=== PATIENT | female | born 1985 | race Caucasian/White ===

== ENCOUNTER → 2020-01-09 14:21 | Outpatient (CLI) | payer OTHER, SELFPAY ==
[2020-01-10 16:08] LABS: COVID19 Sendout Not Detected (Not Detected)
== END ==
PROVIDERS: Visit Provider Nurse Practitioner
DX: Z11.59 Encounter for screening for other viral diseases (principal); J02.9 Acute pharyngitis, unspecified; R53.83 Other fatigue
CPT/HCPCS: 87635

== ENCOUNTER 2020-12-05 09:45 | Outpatient (RCR) | payer OTHER, SELFPAY ==
--- NOTE | 2020-11-06 11:55 | PT.OIE ---
Current Diagnoses Rectocele (10/30/20) Pelvic muscle wasting (10/30/20) Superficial (introital) dyspareunia (10/30/20) Past Medical History Abnormal Pap smear of cervix (~2009) Acne (~2001) Anxiety (~2011) Generalized anxiety disorder History of chickenpox (~1988) Panic disorder Rectocele Hu syndrome (~2004) Right wrist fracture (~1995) Vegan diet Past Surgical History (Last Reviewed 09/27/20 @ 09:29 by Pam Nugent DO) [place] teeth removed (~2003) Visit Care Team Role Provider Type Pam Nugent DO Attending Provider Physician Primary Care Provider Referring Provider Specialty: [facility] Address: [address] [place] [address], [facility] Email: [email or web address] Physical Therapy Initial Evaluation PT-OP-A Visit Information Start: 10/30/20 13:47 Freq: Status: Active Protocol: Document 10/30/20 13:45 [facility] (Rec: 10/30/20 13:59 [facility] [id number]) Out-Patient Physical Therapy Visit Information Visit Information Visit Type Initial Evaluation Visit Note 35 year old female referred to PT for pelvic floor strengthening for Rectocele Visit Start Time 13:45 Visit Stop Time 14:30 Total Visit Minutes 45 Visit Number 1 Evaluation Information Evaluation Date 10/30/20 PT-OP-B Current Condition Start: 10/30/20 13:47 Freq: Status: Active Protocol: Document 10/30/20 13:45 [facility] (Rec: 11/05/20 10:15 [facility] [email or web address]) Current Condition History of Current Condition Onset Date Rectocele s/p delivery of 9# baby June 2019 History of Current Condition Sydnee is a 35 year old female para 2 with c/o rectocele that developed following the of her baby July 21 2019 . Sydnee reports at 6 weeks post she could see tissue falling out. She also notes she was suffering from constipation post . She did do PT for 4 weeks post and this helped her symptoms. Then the pandemic hit and she moved from [facility] so she had to stop her PT. She reports her symptoms have improved however , she still can palpate tissue from the rectocele and has occasional pain with intercourse. She has a history of perineum tearing in 2017 from her first delivery but she notes this was only minor tearing. She does not complain of pelvic heaviness of pressure. Sydnee reports she works out approx 4 times per week with pilates, running , or stationary bike and has good bladder control with these activities. PT-OP-C Subjective Start: 10/30/20 13:47 Freq: Status: Active Protocol: Document 10/30/20 13:45 [facility] (Rec: 11/05/20 10:30 [facility] [email or web address]) Patient Questionnaires Pelvic Pain and Urgency/Frequency Patient Symptom Scale Pelvic Pain Score 7 PT-OP-F Manual Assessment Start: 10/30/20 13:47 Freq: Status: Active Protocol: Document 10/30/20 13:45 [facility] (Rec: 11/05/20 10:30 [facility] [email or web address]) Manual Assessments Soft Tissue Assessment Soft Tissue Mobility Assessment thinning and redness of the perineal tissue PT-OP-I Pelvic Floor Start: 10/30/20 13:47 Freq: Status: Active Protocol: Document 10/30/20 13:45 [facility] (Rec: 11/05/20 10:30 [facility] [email or web address]) Pelvic Floor Assessment Urine Pelvic Floor Surgery No Pelvic Clock Pelvic Clock 3-6 Tenderness Prolapse Rectocele Grade 2 Perineal Descent Resting Present SEMG (uV) Baseline 1.9 10 Second Contraction 7.8 Recruitment Pattern Good Holding Fair Stability of Hold Fair Contraction Ability Voluntary Contraction Weak Voluntary Relaxation Moderate Manual Muscle Testing Left 2 Manual Muscle Testing Right 3 Manual Muscle Testing Anterior 3 Manual Muscle Testing Posterior 3 Muscle Endurance (Seconds) 6 Comments Pelvic Floor Comments Sydnee is able to contract all aspects of her levator ani. She is weaker on the left side between 3-6 on the pelvic clock and she has tenderness in this area with palpation. With EMG biofeedback the working tone of the pelvic floor muscles was an average of 7.8 uv with a maximum of 24 uv and a minimum resting tone of 1.9 uv PT-OP-Q Treatments Start: 10/30/20 13:47 Freq: Status: Active Protocol: Document 10/30/20 13:45 [facility] (Rec: 11/05/20 10:32 [facility] [email or web address]) Therapeutic Exercises Supine Exercises pelvic floor long holds Supine Exercise Name pelvic floor long holds Side bilateral Reps/Minutes 10 reps average of 7,8 us and maximum of 24.0 uv minimum of 1.9 uv Comments EMG biofeedback was used for pelvic floor facilitation PT-OP-T Assessment and Plan Start: 10/30/20 13:47 Freq: Status: Active Protocol: Document 10/30/20 13:45 [facility] (Rec: 11/05/20 10:37 [facility] [email or web address]) Physical Therapy Assessment Goals dysparunia at times Scout Leaser Goal (LTG) Improve lift and strength of the perineum and decrease thinning of the perineal tissue to assist in decreasing pain with intercourse LTG Duration 8 weeks Strength of the pelvic floor Impairment Decreased strength of the pelvic floor with rectocele Shelter Goal (LTG) Sydnee is able to increase her strength of the levator ani to 4/5 or better on MMT, she no longer complains of tenderness on the left side (4-6 on the pelvic clock)with MMT LTG Duration 8 weeks endurance of the pelvic floor muscles Impairment Decreased endurance of the pelvic floor muscles Short Term Goal (STG) Sydnee is able to sustain a contraction of the levator ani musculature in supine x 10 seconds STG Duration 4 weeks Shelter Goal (LTG) Sydnee is able to sustain a contraction of the levtaor ani musculature in standing for 10 seconds for improved support of the pelvic organs LTG Duration 8 weeks Assessment Summary Assessment Sydnee is a 35 year old female who presents to Physical therapy today 15 months with her second baby. She had a vaginal delivery July [id number]. She reports 6 weeks post she began observing tissue and was experiencing constipation and diarrhea. She began PT for her pelvic floor and this was helping but then the pandemic hit and she moved with her family from [place] to [place] where she resides now. PT. She reports her symptoms have improved however, she still can palpate tissue from the rectocele and has occasional pain with intercourse. She has a history of perineum tearing in 2017 from her first delivery but she notes this was only minor tearing. She does not complain of pelvic heaviness of pressure. Sydnee reports she works out approx 4 times per week and she reports having good bladder control with these activities. With examination today Sydnee is able to contract all regions of her pelvic floor. She is weaker on the left ont he pelvic clock form 3-6 and and tenderness to palpation in this region. A grade 1-2 rectocele is palpated in supine. EMG biofeedback was initiated today and the working tone of the pelvic floor muscle was an average of 7.7 uv with a maximum of 24 uv and a minimum of 1.9 uv. Sydnee is a good candidate for pelvic floor PT and treatment will emphasize improving endurance and strength of the pelvic floor, improving lift of the perineum and improving tissue integrity of the perineum. Physical Therapy Plan Frequency and Duration Frequency of Treatment 1x/Week Duration of Treatment 8 Plan of Care Start Date 10/30/20 Plan of Care End Date 12/25/20 Therapeutic Interventions Therapeutic Interventions Home Exercise Program,Manual Therapy,Neuromuscular Re- education,Patient/Caregiver Education,Self-Care/Home Management,Therapeutic Exercises Modalities Biofeedback Next Visit Focus/Plan Next Note Type Treatment Note Next Visit Plan Work with EMG biofeedback on endurance training of the pelvic floor, assess quick contractions next visit, eccentric control and coordination
--- NOTE | 2020-11-06 11:56 | PT.OPPOC ---
Physical, Occupational & Speech Therapy At [facility] Current Diagnoses Rectocele (10/30/20) Pelvic muscle wasting (10/30/20) Superficial (introital) dyspareunia (10/30/20) Visit Care Team Role Provider Type Pam Nugent DO Attending Provider Physician Primary Care Provider Referring Provider Specialty: Family Practice Address: [address] [place] [address], [facility], [place], [place], [facility] Email: [email or web address] Plan Of Care PT-OP-T Assessment and Plan Start: 10/30/20 13:47 Freq: Status: Active Protocol: Document 10/30/20 13:45 [facility] (Rec: 11/05/20 10:37 [facility] [email or web address]) Physical Therapy Assessment Goals dysparunia at times Scroll Saw Operator Goal (LTG) Improve lift and strength of the perineum and decrease thinning of the perineal tissue to assist in decreasing pain with intercourse LTG Duration 8 weeks Strength of the pelvic floor Impairment Decreased strength of the pelvic floor with rectocele Fpc Goal (LTG) Sydnee is able to increase her strength of the levator ani to 4/5 or better on MMT, she no longer complains of tenderness on the left side (4-6 on the pelvic clock)with MMT LTG Duration 8 weeks endurance of the pelvic floor muscles Impairment Decreased endurance of the pelvic floor muscles Short Term Goal (STG) Sydnee is able to sustain a contraction of the levator ani musculature in supine x 10 seconds STG Duration 4 weeks Fpc Goal (LTG) Sydnee is able to sustain a contraction of the levtaor ani musculature in standing for 10 seconds for improved support of the pelvic organs LTG Duration 8 weeks Assessment Summary Assessment Sydnee is a 35 year old female who presents to Physical therapy today 15 months with her second baby. She had a vaginal delivery July [id number]. She reports 6 weeks post she began observing tissue and was experiencing constipation and diarrhea. She began PT for her pelvic floor and this was helping but then the pandemic hit and she moved with her family from [place] to [place] where she resides now. She reports her symptoms have improved, however she still can palpate tissue from the rectocele and has occasional pain with intercourse. She has a history of perineum tearing in 2017 from her first delivery but she notes this was only minor tearing. She does not complain of pelvic heaviness of pressure. Sydnee reports she works out approx 4 times per week and she reports having good bladder control with these activities. With examination today Sydnee is able to contract all regions of her pelvic floor. She is weaker on the left on the pelvic clock form 3-6 and and tenderness to palpation in this region. A grade 1-2 rectocele is palpated in supine. EMG biofeedback was initiated today and the working tone of the pelvic floor muscle was an average of 7.7 uv with a maximum of 24 uv and a minimum of 1.9 uv. Sydnee is a good candidate for pelvic floor PT and treatment will emphasize improving endurance and strength of the pelvic floor, improving lift of the perineum and improving tissue integrity of the perineum. Physical Therapy Plan Frequency and Duration Frequency of Treatment 1x/Week Duration of Treatment 8 Plan of Care Start Date 10/30/20 Plan of Care End Date 12/25/20 Therapeutic Interventions Therapeutic Interventions Home Exercise Program,Manual Therapy,Neuromuscular Re- education,Patient/Caregiver Education,Self-Care/Home Management,Therapeutic Exercises Modalities Biofeedback Next Visit Focus/Plan Next Note Type Treatment Note Next Visit Plan Work with EMG biofeedback on endurance training of the pelvic floor, assess quick contractions next visit, eccentric control and coordination Plan of Care Dates Plan of Care Start Date 10/30/20 Plan of Care End Date 12/25/20 Electronically Signed by: Debi Hope, PT 11/06/20 4510 Please Sign and Return: I have reviewed this Plan of Care and certify that the skilled therapy services above are required to meet the patient?s needs. Physician Signature Date Printed Name and Credentials Clinical Instructor Signature Printed Name and Credentials
--- NOTE | 2020-11-07 14:12 | PT.OTN ---
Current Diagnoses Rectocele (11/07/20) Pelvic muscle wasting (11/07/20) Superficial (introital) dyspareunia (11/07/20) Physical Therapy Treatment Note PT-OP-A Visit Information Start: 10/30/20 13:47 Freq: Status: Active Protocol: Document 11/07/20 14:06 [facility] (Rec: 11/07/20 14:06 [facility] [email or web address]) Out-Patient Physical Therapy Visit Information Visit Information Visit Type Treatment Note Visit Start Time 09:45 Visit Stop Time 10:30 Total Visit Minutes 45 Visit Number 2 Evaluation Information Evaluation Date 10/30/20 PT-OP-B Current Condition Start: 10/30/20 13:47 Freq: Status: Active Protocol: Document 10/30/20 13:45 [facility] (Rec: 11/05/20 10:15 [facility] [email or web address]) Current Condition History of Current Condition Onset Date Rectocele s/p delivery of 9# baby June 2019 History of Current Condition Sydnee is a 35 year old female para 2 with c/o rectocele that developed following the of her baby July 21 2019 . Sydnee reports at 6 weeks post she could see tissue falling out. She also notes she was suffering from constipation post . She did do PT for 4 weeks post and this helped her symptoms. Then the pandemic hit and she moved from [place] to [place] so she had to stop her PT. She reports her symptoms have improved however , she still can palpate tissue from the rectocele and has occasional pain with intercourse. She has a history of perineum tearing in 2017 from her first delivery but she notes this was only minor tearing. She does not complain of pelvic heavyness of pressure. Sydnee reports she works out approx 4 times per week with pilates, running , or stationary bike and has good bladder control with these activities. PT-OP-C Subjective Start: 10/30/20 13:47 Freq: Status: Active Protocol: Document 11/07/20 09:50 [facility] (Rec: 11/07/20 09:52 [facility] [id number]) OP-PT Subjective Patient Comments Patient Comments in the evening it felt harder to hold than in the am, tried legs up the wall exercise. PT-OP-F Manual Assessment Start: 10/30/20 13:47 Freq: Status: Active Protocol: Document 10/30/20 13:45 [facility] (Rec: 11/05/20 10:30 [facility] [email or web address]) Manual Assessments Soft Tissue Assessment Soft Tissue Mobility Assessment thinning and redness of the perineal tissue PT-OP-I Pelvic Floor Start: 10/30/20 13:47 Freq: Status: Active Protocol: Document 10/30/20 13:45 [facility] (Rec: 11/05/20 10:30 [facility] [email or web address]) Pelvic Floor Assessment Urine Pelvic Floor Surgery No Pelvic Clock Pelvic Clock 3-6 Tenderness Prolapse Rectocele Grade 2 Perineal Descent Resting Present SEMG (uV) Baseline 1.9 10 Second Contraction 7.8 Recruitment Pattern Good Holding Fair Stability of Hold Fair Contraction Ability Voluntary Contraction Weak Voluntary Relaxation Moderate Manual Muscle Testing Left 2 Manual Muscle Testing Right 3 Manual Muscle Testing Anterior 3 Manual Muscle Testing Posterior 3 Muscle Endurance (Seconds) 6 Comments Pelvic Floor Comments Sydnee is able to contract all aspects of her levator ani. She is weaker on the left side between 3-6 on the pelvic clock and she has tenderness in this area with palpation. With EMG biofeedback the working tone of the pelvic floor muscles was an average of 7.8 uv with a maximum of 24 uv and a minimum resting tone of 1.9 uv PT-OP-Q Treatments Start: 10/30/20 13:47 Freq: Status: Active Protocol: Document 11/07/20 09:45 [facility] (Rec: 11/07/20 10:37 [facility] [id number]) Therapeutic Exercises Supine Exercises templates for eccentric control and coordination Comments templates for eccentric control and coordination. quick contractions Reps/Minutes x 10m reps pelvic floor long holds Supine Exercise Name pelvic floor long holds Side bilateral Reps/Minutes 10.0 uv average Comments EMG biofeedback was used for pelvic floor facilitation Neuro Re-Education Treatment Other Activities NMES Details NMES Reps/Duration 10 min Comments on for 10 seconds and off x 10 seconds PT-OP-T Assessment and Plan Start: 10/30/20 13:47 Freq: Status: Active Protocol: Document 11/07/20 10:00 [facility] (Rec: 11/07/20 10:28 [facility] [id number]) Physical Therapy Assessment Assessment Summary Assessment Average to9day 10.1 and max of 16.1 uv added in quick contractions for HEP and elevator exercise for concentric and eccentric contractions also initiated NMES today for improved awareness of the levator ani. Pt was given hand out on julvia cream for the perineum Physical Therapy Plan Frequency and Duration Frequency of Treatment 1x/Week Duration of Treatment 8 Plan of Care Start Date 10/30/20 Plan of Care End Date 12/25/20 Therapeutic Interventions Therapeutic Interventions Home Exercise Program,Manual Therapy,Neuromuscular Re- education,Patient/Caregiver Education,Self-Care/Home Management,Therapeutic Exercises Modalities Biofeedback Next Visit Focus/Plan Next Note Type Treatment Note Next Visit Plan begin scar tissue mobilizations for the perineum next visit
--- NOTE | 2020-11-21 10:50 | PT.OTN ---
Current Diagnoses Rectocele (11/21/20) Pelvic muscle wasting (11/21/20) Superficial (introital) dyspareunia (11/21/20) Physical Therapy Treatment Note PT-OP-A Visit Information Start: 10/30/20 13:47 Freq: Status: Active Protocol: Document 11/21/20 10:39 [facility] (Rec: 11/21/20 10:50 [facility] [email or web address]) Out-Patient Physical Therapy Visit Information Visit Information Visit Type Treatment Note Visit Start Time 09:45 Visit Stop Time 10:30 Total Visit Minutes 45 Visit Number 3 PT-OP-B Current Condition Start: 10/30/20 13:47 Freq: Status: Active Protocol: Document 10/30/20 13:45 [facility] (Rec: 11/05/20 10:15 [facility] [email or web address]) Current Condition History of Current Condition Onset Date Rectocele s/p delivery of 9# baby June 2019 History of Current Condition Sydnee is a 35 year old female para 2 with c/o rectocele that developed following the of her baby July 21 2019 . Sydnee reports at 6 weeks post she could see tissue falling out. She also notes she was suffering from constipation post . She did do PT for 4 weeks post and this helped her symptoms. Then the pandemic hit and she moved from [place] to [place] so she had to stop her PT. She reports her symptoms have improved however , she still can palpate tissue from the rectocele and has occasional pain with intercourse. She has a history of perineum tearing in 2017 from her first delivery but she notes this was only minor tearing. She does not complain of pelvic heavyness of pressure. Sydnee reports she works out approx 4 times per week with pilates, running , or stationary bike and has good bladder control with these activities. PT-OP-C Subjective Start: 10/30/20 13:47 Freq: Status: Active Protocol: Document 11/21/20 10:39 [facility] (Rec: 11/21/20 10:50 [facility] [email or web address]) OP-PT Subjective Patient Comments Patient Comments Sydnee reports she is doing well with her exercises, she does report muscle soreness around the iliac crest and is not sure if it is related to her pelvic floor exercises or not. PT-OP-F Manual Assessment Start: 10/30/20 13:47 Freq: Status: Active Protocol: Document 10/30/20 13:45 [facility] (Rec: 11/05/20 10:30 [facility] [email or web address]) Manual Assessments Soft Tissue Assessment Soft Tissue Mobility Assessment thinning and redness of the perineal tissue PT-OP-I Pelvic Floor Start: 10/30/20 13:47 Freq: Status: Active Protocol: Document 10/30/20 13:45 [facility] (Rec: 11/05/20 10:30 [facility] [email or web address]) Pelvic Floor Assessment Urine Pelvic Floor Surgery No Pelvic Clock Pelvic Clock 3-6 Tenderness Prolapse Rectocele Grade 2 Perineal Descent Resting Present SEMG (uV) Baseline 1.9 10 Second Contraction 7.8 Recruitment Pattern Good Holding Fair Stability of Hold Fair Contraction Ability Voluntary Contraction Weak Voluntary Relaxation Moderate Manual Muscle Testing Left 2 Manual Muscle Testing Right 3 Manual Muscle Testing Anterior 3 Manual Muscle Testing Posterior 3 Muscle Endurance (Seconds) 6 Comments Pelvic Floor Comments Sydnee is able to contract all aspects of her levator ani. She is weaker on the left side between 3-6 on the pelvic clock and she has tenderness in this area with palpation. With EMG biofeedback the working tone of the pelvic floor muscles was an average of 7.8 uv with a maximum of 24 uv and a minimum resting tone of 1.9 uv PT-OP-Q Treatments Start: 10/30/20 13:47 Freq: Status: Active Protocol: Document 11/21/20 10:39 [facility] (Rec: 11/21/20 10:50 [facility] [email or web address]) Therapeutic Exercises Other Exercises piriformis stretches Comments pt given a few to choose from for HEP quadratus lumborum stretches Comments pt given a few to choose from for HEP ITB stretches Comments pt given a few to choose from for HEP Manual Therapy Treatment Soft Tissue Mobilization bulbocavernosus release Comments tender both sides Transverse perineum MFR Comments tighter on the right side perineal body MFR Comments tighter on the right side Neuro Re-Education Treatment Other Activities NMES Details NMES Reps/Duration 10 min Comments on for 10 seconds and off x 10 seconds PT-OP-T Assessment and Plan Start: 10/30/20 13:47 Freq: Status: Active Protocol: Document 11/21/20 10:39 [facility] (Rec: 11/21/20 10:50 [facility] [email or web address]) Physical Therapy Assessment Assessment Summary Assessment worked on stretches for the QL and ITB today as Sydnee was having right sided pain near her iliac crest. Worked on perineum mobilization, transverse perineum release and release of the bulbocavernosus. Right side tighter. Pt has improved contraction of the pelvic floor now but just a little harder to relax on the right side. Physical Therapy Plan Frequency and Duration Frequency of Treatment 1x/Week Duration of Treatment 8 Plan of Care Start Date 10/30/20 Plan of Care End Date 12/25/20 Therapeutic Interventions Therapeutic Interventions Home Exercise Program,Manual Therapy,Neuromuscular Re- education,Patient/Caregiver Education,Self-Care/Home Management,Therapeutic Exercises Modalities Biofeedback Next Visit Focus/Plan Next Note Type Treatment Note Next Visit Plan assess pain at the SI joint, EMG biofeedback for pelvic floor endurance
--- NOTE | 2020-11-28 14:03 | PT.OTN ---
Current Diagnoses Rectocele (11/28/20) Pelvic muscle wasting (11/28/20) Superficial (introital) dyspareunia (11/28/20) Physical Therapy Treatment Note PT-OP-A Visit Information Start: 10/30/20 13:47 Freq: Status: Active Protocol: Document 11/28/20 09:46 [facility] (Rec: 11/28/20 09:50 [facility] [id number]) Out-Patient Physical Therapy Visit Information Visit Information Visit Type Treatment Note Visit Start Time 09:45 Visit Stop Time 10:30 Total Visit Minutes 45 Visit Number 4 PT-OP-B Current Condition Start: 10/30/20 13:47 Freq: Status: Active Protocol: Document 10/30/20 13:45 [facility] (Rec: 11/05/20 10:15 [facility] [id number]) Current Condition History of Current Condition Onset Date Rectocele s/p delivery of 9# baby June 2019 History of Current Condition Sydnee is a 35 year old female para 2 with c/o rectocele that developed following the of her baby July 21 2019 . Sydnee reports at 6 weeks post she could see tissue falling out. She also notes she was suffering from constipation post . She did do PT for 4 weeks post and this helped her symptoms. Then the pandemic hit and she moved from [place] to [place] so she had to stop her PT. She reports her symptoms have improved however , she still can palpate tissue from the rectocele and has occasional pain with intercourse. She has a history of perineum tearing in 2017 from her first delivery but she notes this was only minor tearing. She does not complain of pelvic heavyness of pressure. Sydnee reports she works out approx 4 times per week with pilates, running , or stationary bike and has good bladder control with these activities. PT-OP-C Subjective Start: 10/30/20 13:47 Freq: Status: Active Protocol: Document 11/28/20 09:46 [facility] (Rec: 11/28/20 09:50 [facility] [id number]) OP-PT Subjective Patient Comments Patient Comments the side stretches seem to help her pain at the right Si joint. She has the julva cream and has been using it this week. She is not feeling the pressure from the rectocele PT-OP-F Manual Assessment Start: 10/30/20 13:47 Freq: Status: Active Protocol: Document 10/30/20 13:45 [facility] (Rec: 11/05/20 10:30 [facility] [email or web address]) Manual Assessments Soft Tissue Assessment Soft Tissue Mobility Assessment thinning and redness of the perineal tissue PT-OP-I Pelvic Floor Start: 10/30/20 13:47 Freq: Status: Active Protocol: Document 10/30/20 13:45 [facility] (Rec: 11/05/20 10:30 [facility] [email or web address]) Pelvic Floor Assessment Urine Pelvic Floor Surgery No Pelvic Clock Pelvic Clock 3-6 Tenderness Prolapse Rectocele Grade 2 Perineal Descent Resting Present SEMG (uV) Baseline 1.9 10 Second Contraction 7.8 Recruitment Pattern Good Holding Fair Stability of Hold Fair Contraction Ability Voluntary Contraction Weak Voluntary Relaxation Moderate Manual Muscle Testing Left 2 Manual Muscle Testing Right 3 Manual Muscle Testing Anterior 3 Manual Muscle Testing Posterior 3 Muscle Endurance (Seconds) 6 Comments Pelvic Floor Comments Sydnee is able to contract all aspects of her levator ani. She is weaker on the left side between 3-6 on the pelvic clock and she has tenderness in this area with palpation. With EMG biofeedback the working tone of the pelvic floor muscles was an average of 7.8 uv with a maximum of 24 uv and a minimum resting tone of 1.9 uv PT-OP-Q Treatments Start: 10/30/20 13:47 Freq: Status: Active Protocol: Document 11/28/20 10:08 [facility] (Rec: 11/28/20 10:33 [facility] [id number]) Therapeutic Exercises Supine Exercises templates for eccentric control and coordination Comments templates for eccentric control and coordination. quick contractions Reps/Minutes x 10m reps pelvic floor long holds Reps/Minutes 9.0 uv average, 14.2uv Other Exercises clam shells Reps/Minutes 3x 10 reps Manual Therapy Treatment Soft Tissue Mobilization Transverse perineum MFR Comments improved today with mobility both sides of the transverse perineum. perineal body MFR Comments perineal body movement felt more symmetrical both sides Neuro Re-Education Treatment Other Activities NMES Reps/Duration 10 min Comments pelvic floor NMES PT-OP-T Assessment and Plan Start: 10/30/20 13:47 Freq: Status: Active Protocol: Document 11/28/20 09:45 [facility] (Rec: 11/28/20 14:03 [facility] [email or web address]) Physical Therapy Assessment Assessment Summary Assessment Sydnee has been using the julva cream for 1 week now and today I could tell a difference in her tissue, she does not have as much redness now. The tension in transverse perineal was much reduced as well. She has been working on sidebending stretches at home. Physical Therapy Plan Frequency and Duration Frequency of Treatment 1x/Week Duration of Treatment 8 Plan of Care Start Date 10/30/20 Plan of Care End Date 12/25/20 Therapeutic Interventions Therapeutic Interventions Home Exercise Program,Manual Therapy,Neuromuscular Re- education,Patient/Caregiver Education,Self-Care/Home Management,Therapeutic Exercises Modalities Biofeedback Next Visit Focus/Plan Next Note Type Treatment Note Next Visit Plan work on standing single leg stance with pelvis in alignment, standing pelvic floor contractions
--- NOTE | 2020-12-06 18:23 | PT.OTN ---
Current Diagnoses Rectocele (12/05/20) Pelvic muscle wasting (12/05/20) Superficial (introital) dyspareunia (12/05/20) Physical Therapy Treatment Note PT-OP-A Visit Information Start: 10/30/20 13:47 Freq: Status: Active Protocol: Document 12/05/20 09:45 [facility] (Rec: 12/05/20 09:42 [facility] [email or web address]) Out-Patient Physical Therapy Visit Information Visit Information Visit Type Treatment Note Visit Start Time 09:45 Visit Stop Time 10:30 Total Visit Minutes 45 Visit Number 5 Evaluation Information Evaluation Date 10/30/20 PT-OP-B Current Condition Start: 10/30/20 13:47 Freq: Status: Active Protocol: Document 10/30/20 13:45 [facility] (Rec: 11/05/20 10:15 [facility] [email or web address]) Current Condition History of Current Condition Onset Date Rectocele s/p delivery of 9# baby June 2019 History of Current Condition Sydnee is a 35 year old female para 2 with c/o rectocele that developed following the of her baby July 21 2019 . Sydnee reports at 6 weeks post she could see tissue falling out. She also notes she was suffering from constipation post . She did do PT for 4 weeks post and this helped her symptoms. Then the pandemic hit and she moved from [place] to [place] so she had to stop her PT. She reports her symptoms have improved however , she still can palpate tissue from the rectocele and has occasional pain with intercourse. She has a history of perineum tearing in 2017 from her first delivery but she notes this was only minor tearing. She does not complain of pelvic heavyness of pressure. Sydnee reports she works out approx 4 times per week with pilates, running , or stationary bike and has good bladder control with these activities. PT-OP-C Subjective Start: 10/30/20 13:47 Freq: Status: Active Protocol: Document 12/05/20 09:45 [facility] (Rec: 12/05/20 10:05 [facility] [id number]) OP-PT Subjective Patient Comments Patient Comments pt reports she is not feeling the pelvic pressure now, she feels like she can do the kegels stronger now and hold longer. Using julvia cream daily and feels like there is some improvement with tissue at the vaginal opening. Patient Reported Progress Improving PT-OP-F Manual Assessment Start: 10/30/20 13:47 Freq: Status: Active Protocol: Document 10/30/20 13:45 [facility] (Rec: 11/05/20 10:30 [facility] [email or web address]) Manual Assessments Soft Tissue Assessment Soft Tissue Mobility Assessment thinning and redness of the perineal tissue PT-OP-I Pelvic Floor Start: 10/30/20 13:47 Freq: Status: Active Protocol: Document 10/30/20 13:45 [facility] (Rec: 11/05/20 10:30 [facility] [email or web address]) Pelvic Floor Assessment Urine Pelvic Floor Surgery No Pelvic Clock Pelvic Clock 3-6 Tenderness Prolapse Rectocele Grade 2 Perineal Descent Resting Present SEMG (uV) Baseline 1.9 10 Second Contraction 7.8 Recruitment Pattern Good Holding Fair Stability of Hold Fair Contraction Ability Voluntary Contraction Weak Voluntary Relaxation Moderate Manual Muscle Testing Left 2 Manual Muscle Testing Right 3 Manual Muscle Testing Anterior 3 Manual Muscle Testing Posterior 3 Muscle Endurance (Seconds) 6 Comments Pelvic Floor Comments Sydnee is able to contract all aspects of her levator ani. She is weaker on the left side between 3-6 on the pelvic clock and she has tenderness in this area with palpation. With EMG biofeedback the working tone of the pelvic floor muscles was an average of 7.8 uv with a maximum of 24 uv and a minimum resting tone of 1.9 uv PT-OP-Q Treatments Start: 10/30/20 13:47 Freq: Status: Active Protocol: Document 12/05/20 09:45 [facility] (Rec: 12/05/20 11:12 [facility] [id number]) Therapeutic Exercises Supine Exercises templates for eccentric control and coordination Comments templates for eccentric control and coordination. quick contractions Reps/Minutes x10 pelvic floor long holds Reps/Minutes 8.9 14.4 Standing Exercises standing pelvic floor 5 second holds and 10 sec relax Reps/Minutes x 10 reps 5 sec hold and 10 sec relax Other Exercises single leg squats Comments forward, side, back quadratus lumborum stretches Comments over large ball ITB stretches Reps/Minutes with small myofascial release ball PT-OP-T Assessment and Plan Start: 10/30/20 13:47 Freq: Status: Active Protocol: Document 12/05/20 09:45 [facility] (Rec: 12/06/20 18:23 [facility] [email or web address]) Physical Therapy Assessment Goals dysparunia at times Flexo Press Operator Goal (LTG) Improve lift and strength of the perineum and decrease thinning of the perineal tissue to assist in decreasing pain with intercourse GOOD PROGRESS LTG Duration 8 weeks Strength of the pelvic floor Impairment Decreased strength of the pelvic floor with rectocele Flexo Press Operator Goal (LTG) Sydnee is able to increase her strength of the levator ani to 4/5 or better on MMT, she no longer complains of tenderness on the left side (4-6 on the pelvic clock)with MMT GOAL MET LTG Duration 8 weeks endurance of the pelvic floor muscles Impairment Decreased endurnace of the pelvic floor muscles Short Term Goal (STG) Sydnee is able to sustain a contraction of the levator ani musculature in supine x 10 seconds GOAL MET STG Duration 4 weeks Flexo Press Operator Goal (LTG) Sydnee is able to sustain a contraction of the levtaor ani musculature in standing for 10 seconds for improved support of the pelvic organs Some progress and will continue to work on standing pelvic floor contractions on her own. LTG Duration 8 weeks Assessment Summary Assessment Sydnee has done well with PT, she demonstrates improved strength and endurance of her pelvic floor and notes overall a decrease in pelvic presssure. She is using julvia cream which she feels is starting to help with her vaginal tissue. At this time Sydnee is independent with her HEP and will be discharged from PT Physical Therapy Plan Discharge Physical Therapy Discharge Reasons No Longer Attending PT Discharge Comments Pt is independent with her HEP and will continue to work on her home program.
== END 2020-12-07 08:38 | disposition home or self-care (01) ==
LOC: PHYS 09:45
PROVIDERS: PCP Family Medicine; Referring Provider Family Medicine; Visit Provider Family Medicine
DX: N81.6 Rectocele (principal); N81.84 Pelvic muscle wasting; N94.11 Superficial (introital) dyspareunia
CPT/HCPCS: 97110; 97112; 97140; 97161

== ENCOUNTER → 2021-06-03 15:09 | Outpatient (CLI) | payer OTHER, SELFPAY | PROVIDERS: PCP Family Medicine; Referring Provider Family Medicine; Visit Provider Family Medicine | DX: B83.9 Helminthiasis, unspecified (principal) | CPT/HCPCS: 87177 ==

== ENCOUNTER → 2022-10-13 12:37 | Outpatient (CLI) | payer OTHER, SELFPAY ==
--- NOTE | 2022-10-13 | DI.US.S_ITS ---
PROCEDURE: US OB >= 14 WEEKS FETUS INDICATIONS: ANATOMY OUTSIDE/PRIOR DATING DATA: Last menstrual period (LMP): 05/26/2022. LMP-based estimated date of delivery (CINDY): 03/02/2023. First dating scan (date and location): 10/13/2022. Estimated date of delivery (CINDY) from first dating scan: 03/01/2023. The calculations are made using the working CINDY of 03/02/2023. TECHNIQUE: Real-time scanning was performed of the fetus, with image documentation and biometric measurements. Endovaginal scanning: Not performed COMPARISON: None. FINDINGS: General: A single living intrauterine gestation is present. Presentation: Breech. Placenta: Placental position is posterior , without previa. Amniotic fluid index: 12.3 cm, normal range is 5-24 cm. Single deepest vertical pocket is 4.4 cm. heart rate: 147 beats per minute. Maternal cervical canal: 4.8 cm long. Normal lower limit is 2.5 cm. biometrics: Biparietal diameter: 4.6 cm, 20 weeks 1 day Head circumference: 17.6 cm, 20 weeks 1 day Abdominal circumference: 15.4 cm, 20 weeks 4 days Femur length: 3.1 cm, 19 weeks 5 days Clinically estimated gestational age: 20 weeks 0 days Composite gestational age from present scan: 20 weeks 1 day Estimated weight and percentile: 337 g, 56th percentile Anatomic survey: Neuro: Ventricles are non-dilated at less than 10 mm. Cisterna magna is normal at 3-11 mm. Cerebellum is normal in size and morphology. Nuchal skin fold: Normal at less than 6 mm between 14-21 weeks gestational age. Face: Nose and lips, facial profile are normal. Spine: No evidence for spina bifida. Heart: 4-chambered heart is present, with normal ventricular outflow tracts. Question echogenic intracardiac focus in the left ventricle. Diaphragm: Diaphragm is intact. Stomach: Left-sided stomach is present. Kidneys: No hydronephrosis. Normal is less than 5 mm in 2nd trimester, less than 7 mm in 3rd trimester. Cord: 3-vessel cord has orthotopic insertion. Bladder: Normal in size. Extremities: All 4 extremities identified. IMPRESSION: 1. Living 2nd trimester intrauterine with no sonographic evidence of complications. Current ultrasound age is 1 day greater than clinical age based on LMP. 2. Question echogenic intracardiac focus in the left ventricle, typically an incidental finding. 3. Otherwise unremarkable anatomy study. We strive to produce accurate, complete, and clear reports of imaging services. To assist us in improving patient care, this report was composed using standard report templates and voice recognition software. Therefore, it may contain abnormal punctuation, insertions and/or omissions. Occasional wrong-word or sound-alike substitutions may occur. Though we review the report and make efforts to correct it, we do recommend that the report be read carefully in proper context to recognize any text inaccuracies. Dictated by: Anuj Paula M.D. on 10/13/2022 at 18:08 Approved by: Anuj Paula M.D. on 10/13/2022 at 18:13
== END ==
PROVIDERS: PCP Family Medicine; Referring Provider Nurse Practitioner Obstetrics & Gynecology; Visit Provider Nurse Practitioner Obstetrics & Gynecology
DX: Z34.92 Encounter for supervision of normal pregnancy, unspecified, second trimester (principal); Z3A.20 20 weeks gestation of pregnancy
CPT/HCPCS: 76811

== ENCOUNTER → 2022-11-24 06:57 | Outpatient (CLI) | payer OTHER, SELFPAY ==
[2022-11-24 08:32] LABS: Hemoglobin 11.9 g/dL (12.0-16.0)
[2022-11-24 09:13] LABS: Glucose Fasting 80 mg/dL (70-100)
[2022-11-24 09:19] LABS: Glucose Tol Interpretation INTERPRETATION
[2022-11-24 09:52] LABS: Glucose 1 Hour 72 mg/dL (70-170)
[2022-11-24 09:56] LABS: Glucose 2 Hour 100 mg/dL (70-140)
[2022-11-25 10:44] LABS: Mean Corpuscular HGB Conc 33.7 % (30-36); Mean Corpuscular Hemoglobin 30.4 PG (26-34); Mean Corpuscular Volume 90.2 fL (80-100); Platelet Count 263 X10^3/uL (150-400); Red Blood Cell Count 3.92 X10^6/uL (4.0-5.2); Red Cell Distribution Width 13.9 % (11.6-14.8); White Blood Cell Count 9.5 X10^3/uL (4.5-11.0)
[2022-11-25 10:45] LABS: Hematocrit 35.4 % (36-46)
== END ==
PROVIDERS: PCP Family Medicine; Referring Provider Nurse Practitioner Obstetrics & Gynecology; Visit Provider Nurse Practitioner Obstetrics & Gynecology
DX: Z34.90 Encounter for supervision of normal pregnancy, unspecified, unspecified trimester (principal); Z13.1 Encounter for screening for diabetes mellitus; Z3A.26 26 weeks gestation of pregnancy
CPT/HCPCS: 36415; 82951; 82952; 85014; 85018; 85027

== ENCOUNTER → 2023-02-20 14:17 | Outpatient (CLI) | payer OTHER, SELFPAY ==
[2023-02-20 15:11] LABS: Appearance Urine UA CLEAR; Bilirubin Urine UA NEGATIVE (NEGATIVE); Color Urine UA YELLOW; Glucose Urine UA NEGATIVE (Negative); Ketones Urine UA NEGATIVE (NEGATIVE); Leukocyte Esterase Urine UA NEGATIVE (NEGATIVE); Nitrite Urine UA NEGATIVE (Negative); Occult Blood Urine UA NEGATIVE (Negative); Protein Urine UA NEGATIVE (Negative); Specific Gravity Urine UA <=1.005 (1.000-1.035); Urobilinogen Urine UA 0.2 E.U./dL (0.2)
[2023-02-20 15:22] LABS: Bacteria Urine Moderate (10-30); Culture Indicated Urine Specimen Cultured; RBC Urine 0-1/HPF (0-5/HPF); Squamous Epithelial Cell Urine 0-1 /HPF (0-5/HPF); WBC Urine 0-1/HPF (0-5/HPF)
== END ==
PROVIDERS: PCP Family Medicine; Referring Provider Advanced Practice Midwife; Visit Provider Advanced Practice Midwife
DX: O23.40 Unspecified infection of urinary tract in pregnancy, unspecified trimester (principal); Z34.03 Encounter for supervision of normal first pregnancy, third trimester
CPT/HCPCS: 81001; 87086; 87147

== ENCOUNTER 2023-02-24 18:15 | Outpatient (CLI) | payer OTHER, SELFPAY ==
--- NOTE | 2023-02-24 18:25 | PM.OBTRLD ---
Visit Information Visit Information Date of evaluation: 02/24/23 Primary OB Provider: Rachel Miller On-call OB Provider: Rachel Miller Reason for Evaluation: Yes rupture of membranes Comments/Additional reasons for admission: Sydnee is a 37 year old at 39w1d by LMP and confirmed by early ultrasound. She has had leaking of fluid today, small amounts of clear fluid. Had membrane sweep yesterday, lost her mucus plug earlier today in a couple of chunks with a very small amount of plug. Came to clinic where nitrazine was equivocal, so now here for amnisure and NST. Baby moving well. She is here with her , James. Vital Signs Vital Signs: BP 115/63 Temp: 36.6 C Pulse: 91 bpm PFSH Medical History Abnormal Pap smear of cervix (~2009) Acne (~2001) Anxiety (~2011) Generalized anxiety disorder History of chickenpox (~1988) Panic disorder Rectocele Hu syndrome (~2004) Right wrist fracture (~1995) Vegan diet Surgical History [place] teeth removed (~2003) Family History Father Family history of BPH Mother Alcohol abuse Hyperlipidemia Hypertension Brother Healthy adult Sister Healthy adult Sister Healthy adult Grandfather Hypertension Hyperlipidemia CVA (cerebral vascular accident) Grandmother Breast cancer Vascular dementia Hypertension Hyperlipidemia Grandfather Dementia Grandmother No problems noted. Social History (Updated 09/11/20 @ 08:55 by Dori Berkowitz MA) Smoking Status: Never smoker alcohol intake: current substance use type: does not use well-balanced diet: daily or most days daily servings fruits/ve or more times/day caffeine: Yes eating out: 1-3 times/week Type(s) of exercise: walking, regular exercise, other and running frequency: 3-4 times per week Review of Systems Review of Systems Narrative: All negative except as mentioned in HPI. Exam GI Inspection: normal to inspection and other Other: gravid Objective Labs Labs: Amnisure: negative Evaluation Evaluation Baseline heart rate: 120 Variability: Moderate (11-25) monitor accelerations: Present Monitor Decelerations: Absent Contraction Frequency (minutes): 10 Uterine Contraction Intensity: Mild Category of Tracing: Reactive Diagnosis, Plan/Disposition Final Diagnosis (1) Supervision of high risk , unspecified, third trimester: Status: Acute (2) Positive GBS test: Status: Acute (3) Intact amniotic membranes: Status: Acute (4) Advanced maternal age (AMA) in : Status: Acute Plan/Disposition Plan: P: Reviewed return to care indications, including signs of labor, ROM, decreased movement and vaginal bleeding Discussed risks and benefits of scheduling elective vs. medically indicated induction Sydnee requests to be put on the schedule for testing at 41 weeks, and let CNM know tomorrow about preferred IOL date. Discharge to home
== END 2023-02-24 19:09 | disposition home or self-care (01) ==
LOC: OB 02-25 16:12
PROVIDERS: PCP Family Medicine; Referring Provider Advanced Practice Midwife; Visit Provider Advanced Practice Midwife
DX: Z03.71 Encounter for suspected problem with amniotic cavity and membrane ruled out (principal); O99.820 Streptococcus B carrier state complicating pregnancy; O09.523 Supervision of elderly multigravida, third trimester; Z3A.39 39 weeks gestation of pregnancy
CPT/HCPCS: 59025; 84112; G0378; G0379

== ENCOUNTER 2023-03-02 00:45 | Observation (INO) | payer OTHER, SELFPAY ==
--- NOTE | 2023-03-02 01:25 | PM.OBTRLD ---
Visit Information Visit Information Date of evaluation: 03/02/23 Primary OB Provider: Rachel Miller On-call OB Provider: aRchel Milelr Reason for Evaluation: Yes rupture of membranes Comments/Additional reasons for admission: Sydnee is a 37 year old at 40w0d by LMP and confirmed by 1st trimester ultrasound. She called CNM approx midnight to report PROM with clear fluid 3 hours prior. She is here to confirm rupture of membranes and get antibiotics if confirmed due to GBS positive. Sydnee is here with her , James. After reviewing options and research, they have decided they would like to receive cefazolin 2 g loading dose since they desire returning home to await contractions and it has 8 hour dosing. Sydnee had an uncomplicated with CNMs and desires a low-intervention, unmedicated . Vital Signs Vital Signs: BP: 133/80 Temp: 36.6 C Pulse: 91 bpm PFSH Medical History Abnormal Pap smear of cervix (~2009) Acne (~2001) Anxiety (~2011) Generalized anxiety disorder History of chickenpox (~1988) Panic disorder Rectocele Hu syndrome (~2004) Right wrist fracture (~1995) Vegan diet Surgical History [place] teeth removed (~2003) Family History Father Family history of BPH Mother Alcohol abuse Hyperlipidemia Hypertension Brother Healthy adult Sister Healthy adult Sister Healthy adult Grandfather Hypertension Hyperlipidemia CVA (cerebral vascular accident) Grandmother Breast cancer Vascular dementia Hypertension Hyperlipidemia Grandfather Dementia Grandmother No problems noted. Social History (Updated 09/11/20 @ 08:55 by Dori Berkowitz MA) Smoking Status: Never smoker alcohol intake: current substance use type: does not use well-balanced diet: daily or most days daily servings fruits/ve or more times/day caffeine: Yes eating out: 1-3 times/week Type(s) of exercise: walking, regular exercise, other and running frequency: 3-4 times per week Review of Systems Review of Systems Narrative: Negative except as mentioned above. Objective Labs Labs: Positive anmisure Evaluation Evaluation Baseline heart rate: 130 Variability: Moderate (11-25) monitor accelerations: Present Monitor Decelerations: Absent Contraction Frequency (minutes): 5 (irregular, painless) Category of Tracing: Reactive Comments: NO SVE r/to PROM Diagnosis, Plan/Disposition Final Diagnosis (1) Advanced maternal age (AMA) in : Status: Acute (2) Positive GBS test: Status: Acute (3) Supervision of high risk , unspecified, third trimester: Status: Acute (4) Generalized anxiety disorder: Status: Acute (5) PROM (premature rupture of membranes): Status: Acute (6) NST (non-stress test) reactive: Status: Acute Plan/Disposition Plan: Antibiotics now. Cefazolin 2 g loading dose. NST Discharge home with instructions to sleep and avoid anything in vagina.
[2023-03-02] MEDS: CEFAZOLIN 2 GM/100 ML PREMIX 100 ML IV (01:41)
[2023-03-02 01:42] VITALS: BP 128/74
[2023-03-02 01:45] LABS: Hematocrit 32.8 % (36-46); Hemoglobin 11.3 g/dL (12.0-16.0); Mean Corpuscular HGB Conc 34.5 % (30-36); Mean Corpuscular Hemoglobin 30.2 PG (26-34); Mean Corpuscular Volume 87.4 fL (80-100); Platelet Count 289 X10^3/uL (150-400); Red Blood Cell Count 3.75 X10^6/uL (4.0-5.2); Red Cell Distribution Width 14.2 % (11.6-14.8); White Blood Cell Count 13.3 X10^3/uL (4.5-11.0)
[2023-03-02 01:46] LABS: Add Manual Diff / Slide Review YES
[2023-03-02 02:16] LABS: Neutrophils Absolute Manual 7980 /uL (3000-5900); Total Cells Counted 100
[2023-03-02 02:17] LABS: RBC Morphology Normal Morphology
--- NOTE | 2023-03-02 09:15 | PM.OBTRLD ---
Visit Information Visit Information Date of evaluation: 03/02/23 Primary OB Provider: Rachel Miller On-call OB Provider: Rachel Miller Reason for Evaluation: Yes rupture of membranes and Yes other Comments/Additional reasons for admission: GBS positive. HPI: Sydnee is here for her 2nd dose of antibiotics. She slept about 2 hours and ate breakfast approx 0600. She is having mild contractions. When offered cervical exam, pitocin augmentation or hospital admission, she refuses. She is interested in trying a castor oil treatment to get labor going today at home and desires another dose of cefazolin now to treat her GBS; plans to return to hospital at 1700 for third dose and may consider staying at that time or returning at 2100. She is still leaking fluid and baby is still moving well. Vital Signs Vital Signs: BP 128/74, 133/80 HR: 90 bpm Temp: 36.6 PFSH Medical History Abnormal Pap smear of cervix (~2009) Acne (~2001) Anxiety (~2011) Generalized anxiety disorder History of chickenpox (~1988) Panic disorder Rectocele Hu syndrome (~2004) Right wrist fracture (~1995) Vegan diet Surgical History [place] teeth removed (~2003) Family History Father Family history of BPH Mother Alcohol abuse Hyperlipidemia Hypertension Brother Healthy adult Sister Healthy adult Sister Healthy adult Grandfather Hypertension Hyperlipidemia CVA (cerebral vascular accident) Grandmother Breast cancer Vascular dementia Hypertension Hyperlipidemia Grandfather Dementia Grandmother No problems noted. Social History (Updated 09/11/20 @ 08:55 by Dori Berkowitz MA) Smoking Status: Never smoker alcohol intake: current substance use type: does not use well-balanced diet: daily or most days daily servings fruits/ve or more times/day caffeine: Yes eating out: 1-3 times/week Type(s) of exercise: walking, regular exercise, other and running frequency: 3-4 times per week Review of Systems Review of Systems Narrative: Negative except as mentioned in HPI. Objective Labs 03/02/23 01:25 Labs: Laboratory Results - last 24 hr 03/02/23 03/02/23 01:25 01:25 WBC 13.3 H RBC 3.75 L Hgb 11.3 L Hct 32.8 L MCV 87.4 MCH 30.2 MCHC 34.5 RDW 14.2 Plt Count 289 Neut % (Auto) Not Reportable Lymph % (Auto) Not Reportable [place] % (Auto) Not Reportable Eos % (Auto) Not Reportable Baso % (Auto) Not Reportable Lymph # (Auto) Not Reportable [place] # (Auto) Not Reportable Baso # (Auto) Not Reportable Total Counted 100 Seg Neutrophils % 56.0 Band Neutrophils % 4.0 Lymphocytes % (Manual) 34.0 Monocytes % (Manual) 5.0 Eosinophils % (Manual) 1.0 L Neutrophils # (Manual) 7980 H RBC Morphology Normal morphology Blood Type O Positive Evaluation Evaluation Variability: Moderate (11-25) monitor accelerations: Present Monitor Decelerations: Absent Contraction Frequency (minutes): 6 (irregular) Uterine Contraction Intensity: Mild Category of Tracing: Reactive Comments: Cervical exam declined Diagnosis, Plan/Disposition Final Diagnosis (1) Advanced maternal age (AMA) in : Status: Acute (2) Positive GBS test: Status: Acute (3) Supervision of high risk , unspecified, third trimester: Status: Acute (4) Generalized anxiety disorder: Status: Acute (5) PROM (premature rupture of membranes): Status: Acute (6) NST (non-stress test) reactive: Status: Acute Plan/Disposition Plan: Discuss options at this time including cervical exam to check for forebag and rupture it, pitocin augmentation, admission to hospital for expectant management or the previously mentioned. Review recommendation to take castor oil after eating breakfast (again) and poor evidence of safety for labor. Also review to expect diarrhea. Review when to call CNM with warning signs or to come back to hospital for evaluation or labor. 2nd dose of antibiotic administered. NST. Discharge home to await labor per patient preference.
[2023-03-02] MEDS: CEFAZOLIN VIAL 1 GM in SODIUM CHLORIDE 0.9% 100 ML IV (09:25)
== END 2023-03-02 10:15 | disposition home or self-care (01) ==
PROVIDERS: Admitting Provider Advanced Practice Midwife; PCP Family Medicine; Referring Provider Advanced Practice Midwife; Visit Provider Advanced Practice Midwife
DX: O42.92 Full-term premature rupture of membranes, unspecified as to length of time between rupture and onset of labor (principal); Z3A.40 40 weeks gestation of pregnancy; O99.820 Streptococcus B carrier state complicating pregnancy; O99.343 Other mental disorders complicating pregnancy, third trimester
CPT/HCPCS: 36415; 59025; 59200; 85007; 85025; 86900; 86901; G0378; G0379; J0690

== ENCOUNTER 2023-03-02 15:29 | Inpatient (IN) | payer OTHER, SELFPAY ==
[2023-03-02 16:31] VITALS: BP 126/57
--- NOTE | 2023-03-02 16:49 | PM.OBHP.1 ---
OB HPI Date/Time Date of admission: 03/02/23 Date Patient Seen: 03/02/23 Time Patient Seen: 16:49 History of Present Condition Chief complaint: CONTRACTIONS : 3 Para: 2 Estimated Date of Delivery: 03/02/23 Estimated Gestational Age (weeks): 40.0 Narrative: Sydnee Johnson is a 37 year old female @ 40wks by sure LMP concordant with 8wk US who presents for evaluation of labor. PROM for clear fluid occurred last night, 03/01/23, at 9pm. She called and came in for evaluation this morning, ROM confirmed by Amnisure, with a first dose of antibiotics received at 0100, then a second dose at 0900. Chose to go home between doses of antibiotics with expectant management of PROM. Began to feel stronger contractions at 1330 that have steadily progressed in frequency and intensity. now breathing through strong contractions every 3-4 minutes. Continues to leak clear fluid. Desires low intervention . Declines cervical exams unless things start to take too long. , James, and Numerical Control Machine OperatorNathanah, are supportive at her side. History of Present care: good care, initiated at week # (8), number of visits (10) and pounds weight gain (42) Dating criteria: LMP confirmed by 1st trimester US Ultrasounds: normal 1st trimester US and normal mid trimester US Obstetrical complications: none Medical complications: none Preadmission Labs Blood type: O (+) positive -: Antibody screen: negative, GBS status: positive, HBsAG: negative, HIV: negative and RPR/VDLR: negative -: Chlamydia screen: not detected and Gonorrhea screen: not detected -: Rubella: immune and Varicella: immune HCT: 35.4 HCAB: negative Cell-free DNA: Negative Narrative: 2hr gtt: 80, 72, 100 Prior (ies) History: Term NSVB x2 Evaluation Evaluation Baseline heart rate: 125 Variability: Moderate (11-25) monitor accelerations: Present Monitor Decelerations: Absent Contraction Frequency (minutes): 3 Uterine Contraction Intensity: Strong/Firm Status: Category l [facility] Medical History Abnormal Pap smear of cervix (~2009) Acne (~2001) Anxiety (~2011) Generalized anxiety disorder History of chickenpox (~1988) Panic disorder Rectocele Hu syndrome (~2004) Right wrist fracture (~1995) Vegan diet Surgical History [place] teeth removed (~2003) Family History Father Family history of BPH Mother Alcohol abuse Hyperlipidemia Hypertension Brother Healthy adult Sister Healthy adult Sister Healthy adult Grandfather Hypertension Hyperlipidemia CVA (cerebral vascular accident) Grandmother Breast cancer Vascular dementia Hypertension Hyperlipidemia Grandfather Dementia Grandmother No problems noted. Social History Smoking Status: Never smoker alcohol intake: current substance use type: does not use well-balanced diet: daily or most days daily servings fruits/ve or more times/day caffeine: Yes eating out: 1-3 times/week Type(s) of exercise: walking, regular exercise, other and running frequency: 3-4 times per week Meds Home Medications and Allergies Allergies Allergy/AdvReac Type Severity Reaction Status Date / Time No Known Drug Allergies Allergy Verified 04/07/22 15:52 Review of Systems Review of Systems ROS: Yes All systems reviewed with the patient and are negative except as otherwise documented OB Exam Vital signs Blood Pressure: 126/57 Pulse Rate: 93 Temperature: 97.0 F Resp Effort & Inspection: normal respiratory effort and able to speak in complete sentences Auscultation: clear to auscultation bilaterally Cardio Rate: regular rate Rhythm: regular rhythm Heart Sounds: S1 normal and S2 normal Presentation: vertex Assessment and Plan Assessment and Plan Assessment and Plan narrative: A:Term Multipara PROM x 20 hours without sx of infection Adequate GBS prophylaxis AMA Cat I FHR P: Admit, routine orders. Labor support PRN. Continue GBS prophylaxis. Reassess in 4 hours or sooner, PRN.
[2023-03-02] MEDS: CEFAZOLIN VIAL 1 GM in SODIUM CHLORIDE 0.9% 100 ML IV (17:04)
[2023-03-02 17:23] VITALS: BP 126/57; PULSE 93; TEMP 36.1
[2023-03-02] MEDS: KETOROLAC 30 MG/ML VIAL IV (19:39)
--- NOTE | 2023-03-02 19:44 | PM.OBPRVD ---
Events: Premature Rupture Membrane Labor & Delivery Delivery date: 03/02/23 Intrapartal Events: None Cervical ripening method: none Induction method: none Delivery monitor: external FHT Route of delivery: Episiotomy description: None L&D Laceration Description: Perineal - 1st Degree Quantitative Blood Loss: 575 Anesthesia Type: None Narrative: Sydnee labored well without augmentation or anesthesia. Began to feel increasing rectal pressure with a spontaneous urge to push and was presumed complete. FHR remained reassuring throughout labor by intermittent auscultation. NSVB of a vigorous baby boy in direct OA position with Sydnee in a squatting position in the bathroom. There was no nuchal cord and the shoulders delivered easily. was passed through Sydnee's legs to her arms and they were assisted to bed. 30 units of pitocin in 500mL LR was started at 250mL/hr for AMTSL. Brisk bleeding was noted and the rate was increased to a bolus with QBL at 400mL at that point. Gentle cord traction and a single maternal push led to spontaneous, Schultze delivery of an apparently intact placenta, membranes and 3VC. Fundus massaged firm and bleeding slowed from moderate to scant. Inspection revealed a 1st degree perineal laceration that was hemostatic and well approximated with no indication for repair. QBL 575mL. Both mother and baby stable and skin to skin as I left the room. Baby 1: gender: Male Presentation: vertex Placenta delivery description: Spontaneous Cord Vessel Description: 3 Vessels score (1 min): 9 score (5 min): 9 weight: 4.004 kg Plan for aftercare: Routine care
[2023-03-03] MEDS: IBUPROFEN 600 MG TABLET PO ×3 (01:44→15:00)
--- NOTE | 2023-03-03 09:11 | P.DS_ITS ---
Discharge Providers Provider Date of admission: 03/02/23 15:29 Discharge Date: 03/03/23 Primary care physician: Pam Nugent DO Consults: 03/03/23 19:41 Consult to Seconds Handler Routine Comment: Discharge provider: Alysha Pereira CNM Summary Hospital Course Date Patient Seen: 03/03/23 Time Patient Seen: 09:11 Diagnoses: o09.529, o70.0 Hospital Course: PPD1: Stable status post NSVB with 1st degree perineal laceration and 575mL blood loss. Ambulating, voiding and independently. Passing gas and tolerating a general diet. Pain is well controlled with ibuprofen. Bleeding light without clots. Partner and family are present and supportive. All are delighted with and looking forward to going home today. Peripartum Data Infant Delivery Method: Natural Vaginal Laceration Description: Perineal - 1st Degree Episiotomy description: None complications: none 1: Gender: Male Disposition of : home Discharge Diagnosis (1) First degree perineal laceration during delivery: Status: Acute Problem Details: routine course Status at Discharge Cognitive/behavioral status at discharge: at baseline, oriented Functional status at discharge: independent ambulation Overall status at discharge: patient is progressing back to baseline Time Spent with Patient Time attestation: Total time spent providing and/or coordinating discharge services: Exam Vital Signs (past 8 hours): BP: 106/62 mmHg HR: 70bpm RR: 16/min T: 97.9F Other: Fundus firm, U-1, midline, scant bleeding Discharge Plan Discharge Plan Patient Disposition: Home Discharge orders & Medications Prescriptions: New ibuprofen 600 mg Tablet 600 mg PO Q6HR PRN (Reason: Pain, Mild (1-3)) 14 Days Qty: 60 0RF No Action No Known Home Medications Follow up/Referrals: Alysha Pereira CNM [Advanced High Raw Sugar Boiler] - 2 Weeks (2 weeks: Thursday03/16/23 at 2:45pm 6 weeks: Thursday04/13/23 at 11:15am) Pam Nugent DO [Primary Care Provider] - Diet/Activity/Treatments Diet: Diet as Tolerated and Regular Diet comment: Hydration and high fiber Activity: Rest in and near bed for 2 weeks Skin/Wound/Dressing Care Report to your healthcare provider any signs of infection, such as:: chills, fever, increased pain, unusual drainage and unusual redness Visit Report/Discharge Packet Stand Alone Forms: Patient Portal/API Discharge Data Primary Care Provider: Pam Nugent
[2023-03-03] MEDS: DOCUSATE 100 MG CAPSULE PO (15:01)
[2023-03-03 16:05] VITALS: BP 100/69; PULSE 85; RESP 14; TEMP 36.6
== END 2023-03-03 17:20 | disposition home or self-care (01) | DRG 807 ==
PROVIDERS: Admitting Provider Nurse Practitioner Obstetrics & Gynecology; PCP Family Medicine; Referring Provider Nurse Practitioner Obstetrics & Gynecology; Visit Provider Nurse Practitioner Obstetrics & Gynecology
DX: O42.02 Full-term premature rupture of membranes, onset of labor within 24 hours of rupture (principal); Z37.0 Single live birth; Z3A.40 40 weeks gestation of pregnancy; O99.824 Streptococcus B carrier state complicating childbirth
CPT/HCPCS: 36415; 59025; 59050; 85007; 85025; 86850; 86900; 86901; G0378; G0379; J0690; J1885

== ENCOUNTER → 2023-05-28 12:37 | Outpatient (CLI) | payer OTHER, SELFPAY ==
[2023-05-28 14:10] LABS: Cholesterol 214 mg/dL (140-199); HDL Cholesterol 97 mg/dL (40-60); LDL Cholesterol Calculated 106 mg/dL (<100); Triglycerides 56 mg/dL (35-150)
[2023-05-28 14:37] LABS: TSH w/ Reflex to FT4 0.83 uIU/mL (0.47-4.68)
== END ==
PROVIDERS: PCP Family Medicine; Referring Provider Family Medicine; Visit Provider Family Medicine
DX: F53.0 Postpartum depression (principal); Z83.438 Family history of other disorder of lipoprotein metabolism and other lipidemia
CPT/HCPCS: 36415; 80061; 84443

== ENCOUNTER 2024-01-20 10:30 | Outpatient (RCR) | payer OTHER, SELFPAY ==
--- NOTE | 2023-10-01 16:00 | PT.OIE ---
Current Diagnoses Stress incontinence (female) (male) (10/01/23) Pelvic and perineal pain (10/01/23) Fecal smearing (10/01/23) Weakness (10/01/23) Past Medical History Abnormal Pap smear of cervix (~2009) Acne (~2001) Anxiety (~2011) Generalized anxiety disorder History of chickenpox (~1988) Panic disorder Rectocele Hu syndrome (~2004) Right wrist fracture (~1995) Vegan diet Past Surgical History (Last Reviewed 03/02/23 @ 17:20 by Alysha Pereira CNM) [place] teeth removed (~2003) Visit Care Team Role Provider Type Avelina Corrales MD Family Provider Physician Primary Care Provider Specialty: Family Practice SUPERVISOR TELEPHONE CLERKS Address: [address] [place] [address], [facility] Fax: Email: [email or web address] Alysha Pereira CNM Attending Provider Advanced Jute Bag Cutting Machine Operator Referring Provider Specialty: SUPERVISOR TELEPHONE CLERKS Address: [address] [place] [address], [address], [address] Email: [email or web address] Physical Therapy Initial Evaluation PT-OP-A Visit Information Start: 10/01/23 10:36 Freq: Status: Active Protocol: Document 10/01/23 10:55 [facility] (Rec: 10/01/23 10:55 [facility] [id number]) Out-Patient Physical Therapy Visit Information Visit Information Visit Type Initial Evaluation Visit Start Time 10:35 Visit Stop Time 11:20 Visit Number 45 Evaluation Information Evaluation Date 10/01/23 PT-OP-B Current Condition Start: 10/01/23 10:36 Freq: Status: Active Protocol: Document 10/01/23 10:30 [facility] (Rec: 10/01/23 10:54 [facility] [id number]) Current Condition History of Current Condition Onset Date 03/02/23 Current Complaints hx of rectocele, fecal incontinence, urinary incontinence, weakness History of Current Condition 3 vaginal deliveries with last delivery february 2023 she tore but reports she didn't get stiches. At her 6 week appt it was still open and it had to be cut to be sewn back together and then stitched. with her second delivery she had a rectocele and this was jul and then they moved a few months later. She feels like she has a little bowel leakage, most of the time she leaks with cough or sneeze. she just had her first period and it was really hard to put the tampon in. She suppliments to make sure she has a bowel movement. SHe feels the scar in her perineum is the right side. PT-OP-C Subjective Start: 10/01/23 10:36 Freq: Status: Active Protocol: Document 10/01/23 10:30 [facility] (Rec: 10/07/23 12:40 [facility] [id number]) Patient Questionnaires Pelvic Pain and Urgency/Frequency Patient Symptom Scale Pelvic Pain Score 8 PT-OP-I Pelvic Floor Start: 10/01/23 10:36 Freq: Status: Active Protocol: Document 10/01/23 10:30 [facility] (Rec: 10/07/23 12:40 [facility] [id number]) Pelvic Floor Assessment Urine Pelvic Floor Surgery No: childbirth 03/02/23 Other Urinary Symptoms some c/o fecal incontinence, urinary incontinence with strong cough and sneeze only, occasional pain with intercourse Leakage Size Large Leakage Cause Exercise Nocturia 0-2 Pelvic Clock Pelvic Clock 12-3 Atrophy Pelvic Clock 3-6 Guarding,Tenderness,Tightness Pelvic Clock 6-9 Atrophy Pelvic Clock 9-12 Atrophy Pelvic Clock Other left lateral vaginal wall the tissue is still healing and Sydnee is guarded and tight on the left scar tissue tightness at the perineum does cause a lateral pull with perineum contraction , tightness of the transverse perineal on the left side Perineal Descent Resting Absent Bearing Absent Contraction Ability Voluntary Contraction Weak Voluntary Relaxation Weak Manual Muscle Testing Left 2 Manual Muscle Testing Right 2 Manual Muscle Testing Anterior 2 Manual Muscle Testing Posterior 2 Number of Quick Contractions In 10 5 Seconds PT-OP-Q Treatments Start: 10/01/23 10:36 Freq: Status: Active Protocol: Document 10/01/23 10:30 [facility] (Rec: 10/01/23 10:58 [facility] [id number]) Therapeutic Exercises Supine Exercises pelvic floor contract relax Reps/Minutes x 10 reps holding 10 seconds and relaxing 10 seconds Self-Care/Home Management Treatment Education Patient Education Home Exercise Program Other Education use of squatty potty and splinting at the perineum for improved bowel emptying, she was given a XS dilator to release the left transverse perineum, pelvic floor endurance and strength training PT-OP-T Assessment and Plan Start: 10/01/23 10:36 Freq: Status: Active Protocol: Document 10/01/23 10:30 [facility] (Rec: 10/07/23 12:40 [facility] [id number]) Physical Therapy Assessment Rehab Potential Rehabilitation Potential Excellent Evaluation Complexity Number of Personal Factors/Comorbidities 0 Number of Body Systems Impaired 1-2 Clinical Presentation at Evaluation Stable Goals 3 Impairment fecal and urinary incontinence Short Term Goal (STG) Sydnee is educated in bladder irritants and toileting strategies to improve bowel movements and voiding STG Duration 3 weeks Sales Engineer Engineered Products Goal (LTG) Sydnee reports she is no longer experiencing fecal smearing/ incontinence and she is able to exercise without urinary leakage LTG Duration 12 weeks 2 Impairment decreased endurance of the pelvic floor Short Term Goal (STG) Sydnee is able to sustain a pelvic floor contraction x 10 seconds in supine STG Duration 5 weeks Jail Goal (LTG) Sydnee is able to sustain a pelvic floor contraction in standing x 5 seconds LTG Duration 12 weeks 1 Impairment post pelvic floor weakness Jail Goal (LTG) Sydnee is able to improve pelvic floor strength for all bustillo of the plevator ani to 3/5 MMT or better LTG Duration 12 weeks Assessment Summary Assessment Sydnee is a 38 year old female who presents to PT for pelvic floor rehab following the vaginal delivery of her third baby 03/02/23. Sydnee reports she has a history of a rectocele after her second delivery and tried to do PT during covid but wasn't able to fully complete a pelvic PT program. She reports she did have a 1st degree tear that didn't require stitches at time of delivery but 6 weeks later it still wasn't healed so it was then stitched. She has felt pain with intercourse since delivery. She reports some fecal incontinence which sounds like fecal smearing and she has had more difficulty with bowel movements since delivery. We talked today about using a squatty potty which she does have at home. She was also educated in splinting at the perineum to assist with fully emptying her bowels. She describes urinary leakage at times with exercise. With exam today the left lateral wall of the levator ani is guarded and the tissue is still healing in the vaginal wall. She tests 2/5 MMT for all bustillo of the levator ani. Sydnee lacks endurance of the pelvic floor and is able to sustain a contraction for a few seconds only. Sydnee is able to pull up from the perineum however there is some scar tissue present as well as tightness in the left transverse perineum muscle. Sydnee was given a XS dilator to use as a tool for external self massage of the Transverse perineal muscle. She tolerated this well. Sydnee is a good candidate for pelvic floor rehab. Physical Therapy Plan Frequency and Duration Frequency of Treatment 1x/Week Duration of treatment (weeks) 12 Plan of Care Start Date 10/01/23 Plan of Care End Date 12/24/23 Therapeutic Interventions Therapeutic Interventions Home Exercise Program,Manual Therapy,Neuromuscular Re- education,Patient/Caregiver Education,Self-Care/Home Management,Soft Tissue Mobilization,Therapeutic Exercises Modalities Biofeedback Next Visit Focus/Plan Next Note Type Treatment Note Next Visit Plan review exercises given to Sydnee at her Evaluation, review use of the dilator for self release of the transverse perinum, trial of ultrasound over the perineum and scar tissue release
--- NOTE | 2023-10-01 16:00 | PT.OPPOC ---
Physical, Occupational & Speech Therapy At [facility] Current Diagnoses Stress incontinence (female) (male) (10/01/23) Pelvic and perineal pain (10/01/23) Fecal smearing (10/01/23) Weakness (10/01/23) Visit Care Team Role Provider Type Avelina Corrales MD Family Provider Physician Primary Care Provider Specialty: Family Practice MECHANICAL PROJECT ENGINEER Address: [address] [place] [address], [facility] [place] [facility] Fax: Email: [email or web address] Alysha Pereira CNM Attending Provider Advanced Compositor Apprentice Referring Provider Specialty: MECHANICAL PROJECT ENGINEER Address: [address] [place] [address], [id number] Email: [email or web address] Plan Of Care PT-OP-T Assessment and Plan Start: 10/01/23 10:36 Freq: Status: Active Protocol: Document 10/01/23 10:30 [facility] (Rec: 10/07/23 12:40 [facility] [id number]) Physical Therapy Assessment Rehab Potential Rehabilitation Potential Excellent Evaluation Complexity Number of Personal Factors/Comorbidities 0 Number of Body Systems Impaired 1-2 Clinical Presentation at Evaluation Stable Goals 3 Impairment fecal and urinary incontinence Short Term Goal (STG) Sydnee is educated in bladder irritants and toileting strategies to improve bowel movements and voiding STG Duration 3 weeks Box Printing Machine Operator Goal (LTG) Sydnee reports she is no longer experiencing fecal smearing/ incontinence and she is able to exercise without urinary leakage LTG Duration 12 weeks 2 Impairment decreased endurance of the pelvic floor Short Term Goal (STG) Sydnee is able to sustain a pelvic floor contraction x 10 seconds in supine STG Duration 5 weeks Box Printing Machine Operator Goal (LTG) Sydnee is able to sustain a pelvic floor contraction in standing x 5 seconds LTG Duration 12 weeks 1 Impairment post pelvic floor weakness Senior Care Goal (LTG) Sydnee is able to improve pelvic floor strength for all bustillo of the levator ani to 3/5 MMT or better LTG Duration 12 weeks Assessment Summary Assessment Sydnee is a 38 year old female who presents to PT for pelvic floor rehab following the vaginal delivery of her third baby 03/02/23. Sydnee reports she has a history of a rectocele after her second delivery and tried to do PT during covid but wasn't able to fully complete a pelvic PT program. She reports she did have a 1st degree tear that didn't require stitches at time of delivery but 6 weeks later it still wasn't healed so it was then stitched. She has felt pain with intercourse since delivery. She reports some fecal incontinence which sounds like fecal smearing and she has had more difficulty with bowel movements since delivery. We talked today about using a squatty potty which she does have at home. She was also educated in splinting at the perineum to assist with fully emptying her bowels. She describes urinary leakage at times with exercise. With exam today the left lateral wall of the levator ani is guarded and the tissue is still healing in the vaginal wall. She tests 2/5 MMT for all bustillo of the levator ani. Sydnee lacks endurance of the pelvic floor and is able to sustain a contraction for a few seconds only. Sydnee is able to pull up from the perineum however there is some scar tissue present as well as tightness in the left transverse perineum muscle. Sydnee was given a XS dilator to use as a tool for external self massage of the Transverse perineal muscle. She tolerated this well. Sydnee is a good candidate for pelvic floor rehab. Physical Therapy Plan Frequency and Duration Frequency of Treatment 1x/Week Duration of treatment (weeks) 12 Plan of Care Start Date 10/01/23 Plan of Care End Date 12/24/23 Therapeutic Interventions Therapeutic Interventions Home Exercise Program,Manual Therapy,Neuromuscular Re- education,Patient/Caregiver Education,Self-Care/Home Management,Soft Tissue Mobilization,Therapeutic Exercises Modalities Biofeedback Next Visit Focus/Plan Next Note Type Treatment Note Next Visit Plan review exercises given to Sydnee at her Evaluation, review use of the dilator for self release of the transverse perinum, trial of ultrasound over the perineum and scar tissue release Plan of Care Dates Plan of Care Start Date 10/01/23 Plan of Care End Date 12/24/23 Electronically Signed by: Debi Hope, PT 10/07/23 1257 If you are in agreement with this Plan of Care, please return a signed and dated copy. I have reviewed this Plan of Care and certify that the skilled therapy services above are required to meet the patient?s needs. Physician Signature Date Printed Name and Credentials Clinical Instructor Signature Printed Name and Credentials
--- NOTE | 2023-10-29 16:33 | PT.OTN ---
Current Diagnoses Stress incontinence (female) (male) (10/29/23) Pelvic and perineal pain (10/29/23) Fecal smearing (10/29/23) Weakness (10/29/23) Physical Therapy Treatment Note PT-OP-A Visit Information Start: 10/01/23 10:36 Freq: Status: Active Protocol: Document 10/29/23 11:15 [facility] (Rec: 10/29/23 12:09 [facility] [id number]) Out-Patient Physical Therapy Visit Information Visit Information Visit Type Treatment Note Visit Start Time 11:15 Visit Stop Time 12:00 Visit Number 2 PT-OP-B Current Condition Start: 10/01/23 10:36 Freq: Status: Active Protocol: Document 10/01/23 10:30 [facility] (Rec: 10/01/23 10:54 [facility] [id number]) Current Condition History of Current Condition Onset Date 03/02/23 Current Complaints hx of rectocele, fecal incontinence, urinary incontinence, weakness History of Current Condition 3 vaginal deliveries with last delivery february 2023 she tore but reports she didn't get stiches. At her 6 week appt it was still open and it had to be cut to be sewn back together and then stitched. with her second delivery she had a rectocele and this was jul and then they moved a few months later. She feels like she has a little bowel leakage, most of the time she leaks with cough or sneeze. she just had her first period and it was really hard to put the tampon in. She suppliments to make sure she has a bowel movement. SHe feels the scar in her perineum is the right side. PT-OP-C Subjective Start: 10/01/23 10:36 Freq: Status: Active Protocol: Document 10/29/23 11:15 [facility] (Rec: 10/29/23 12:09 [facility] [id number]) OP-PT Subjective Patient Comments Patient Comments Sydnee reports she has been doing the estrogen cream and using the dilator and has been doing the kegels, still having some fecal smearing. SHe has been the estrogen and notes scar tissue on the perineum PT-OP-I Pelvic Floor Start: 10/01/23 10:36 Freq: Status: Active Protocol: Document 10/01/23 10:30 [facility] (Rec: 10/07/23 12:40 [facility] [id number]) Pelvic Floor Assessment Urine Pelvic Floor Surgery No: childbirth 03/02/23 Other Urinary Symptoms some c/o fecal incontinence, urinary incontinence with strong cough and sneeze only, occasional pain with intercourse Leakage Size Large Leakage Cause Exercise Nocturia 0-2 Pelvic Clock Pelvic Clock 12-3 Atrophy Pelvic Clock 3-6 Guarding,Tenderness,Tightness Pelvic Clock 6-9 Atrophy Pelvic Clock 9-12 Atrophy Pelvic Clock Other left lateral vaginal wall the tissue is still healing and Sydnee is guarded and tight on the left scar tissue tightness at the perineum does cause a lateral pull with perineum contraction , tightness of the transverse perineal on the left side Perineal Descent Resting Absent Bearing Absent Contraction Ability Voluntary Contraction Weak Voluntary Relaxation Weak Manual Muscle Testing Left 2 Manual Muscle Testing Right 2 Manual Muscle Testing Anterior 2 Manual Muscle Testing Posterior 2 Number of Quick Contractions In 10 5 Seconds PT-OP-Q Treatments Start: 10/01/23 10:36 Freq: Status: Active Protocol: Document 10/29/23 11:15 [facility] (Rec: 10/29/23 12:09 [facility] [id number]) Therapeutic Exercises Supine Exercises BALL SQUEEZE WITH PELVIC FLOOR CONTRACTION Reps/Minutes X 10 REPS pelvic floor contract relax Supine Exercise Name EMG BIOFEEDBACK Reps/Minutes 10 AVERAGE AND 17.9 MAX Manual Therapy Treatment Soft Tissue Mobilization pelvic diaphraghm MFR Mobilization Type Myofascial Release Comments worked on a lift of the pelvic floor from the ischiums bilaterally TRANSVERSE PERINEUM Mobilization Type Myofascial Release Comments LEFT SIDE SORENESS AND TIGHTNESS, worked on MFR for left side and over the perineum PT-OP-R Modalities Start: 10/29/23 12:09 Freq: Status: Active Protocol: Document 10/29/23 11:15 [facility] (Rec: 10/29/23 12:10 [facility] [id number]) Ultrasound Therapy Treatment perineum and left transverse perineum Patient Position Supine Coupling Medium Ultrasound Gel Applicator Size (cm2) 2 Frequency Setting (mHz) 1 Duty Cycle 100% Intensity Setting (w/cm2) 1.2 Comments 5 minutes with small ultrasound head PT-OP-T Assessment and Plan Start: 10/01/23 10:36 Freq: Status: Active Protocol: Document 10/29/23 11:15 [facility] (Rec: 10/29/23 12:09 [facility] [id number]) Physical Therapy Assessment Goals 3 Impairment fecal and urinary incontinence Short Term Goal (STG) Sydnee is educated in bladder irritants and toileting strategies to improve bowel movements and voiding STG Duration 3 weeks Shelter Goal (LTG) Sydnee reports she is no longer experiencing fecal smearing/ incontinence and she is able to exercise without urinary leakage LTG Duration 12 weeks 2 Impairment decreased endurance of the pelvic floor Short Term Goal (STG) Sydnee is able to sustain a pelvic floor contraction x 10 seconds in supine STG Duration 5 weeks Threading Machine Operator Goal (LTG) Sydnee is able to sustain a pelvic floor contraction in standing x 5 seconds LTG Duration 12 weeks 1 Impairment post pelvic floor weakness Threading Machine Operator Goal (LTG) Sydnee is able to improve pelvic floor strength for all bustillo of the plevator ani to 3/5 MMT or better LTG Duration 12 weeks Assessment Summary Assessment Sydnee tolerated US well followed my scar tissue mobilization of the perienum and left Transverse perineal musculature. She was fatigued and had some soreness after her pelvic floor exercises and so I emphasized not over doing as her vaginal tissue is still healing. It is pink now rather than red. She does have what looks like a keloid on the right interal vaginal wall that she says was burned off at one of her post op appointments. Physical Therapy Plan Frequency and Duration Frequency of Treatment 1x/Week Duration of treatment (weeks) 12 Plan of Care Start Date 10/01/23 Plan of Care End Date 12/24/23 Next Visit Focus/Plan Next Note Type Treatment Note Next Visit Plan continue with EMG biofeedback for endurance training, check in with how Sydnee did with the ultrasound and scar tissue mobilization of the perineum
--- NOTE | 2023-11-05 16:21 | PT.OTN ---
Current Diagnoses Stress incontinence (female) (male) (11/05/23) Pelvic and perineal pain (11/05/23) Fecal smearing (11/05/23) Weakness (11/05/23) Physical Therapy Treatment Note PT-OP-A Visit Information Start: 10/01/23 10:36 Freq: Status: Active Protocol: Document 11/05/23 15:18 [facility] (Rec: 11/05/23 15:51 [facility] [id number]) Out-Patient Physical Therapy Visit Information Visit Information Visit Start Time 15:15 Visit Stop Time 16:00 Visit Number 3 PT-OP-B Current Condition Start: 10/01/23 10:36 Freq: Status: Active Protocol: Document 10/01/23 10:30 [facility] (Rec: 10/01/23 10:54 [facility] [id number]) Current Condition History of Current Condition Onset Date 03/02/23 Current Complaints hx of rectocele, fecal incontinence, urinary incontinence, weakness History of Current Condition 3 vaginal deliveries with last delivery february 2023 she tore but reports she didn't get stiches. At her 6 week appt it was still open and it had to be cut to be sewn back together and then stitched. with her second delivery she had a rectocele and this was jul and then they moved a few months later. She feels like she has a little bowel leakage, most of the time she leaks with cough or sneeze. she just had her first period and it was really hard to put the tampon in. She suppliments to make sure she has a bowel movement. SHe feels the scar in her perineum is the right side. PT-OP-C Subjective Start: 10/01/23 10:36 Freq: Status: Active Protocol: Document 11/05/23 15:18 [facility] (Rec: 11/05/23 15:51 [facility] [id number]) OP-PT Subjective Patient Comments Patient Comments did fine after last visit, less of the sharp pain since last visit PT-OP-I Pelvic Floor Start: 10/01/23 10:36 Freq: Status: Active Protocol: Document 10/01/23 10:30 [facility] (Rec: 10/07/23 12:40 [facility] [id number]) Pelvic Floor Assessment Urine Pelvic Floor Surgery No: childbirth 03/02/23 Other Urinary Symptoms some c/o fecal incontinence, urinary incontinence with strong cough and sneeze only, occasional pain with intercourse Leakage Size Large Leakage Cause Exercise Nocturia 0-2 Pelvic Clock Pelvic Clock 12-3 Atrophy Pelvic Clock 3-6 Guarding,Tenderness,Tightness Pelvic Clock 6-9 Atrophy Pelvic Clock 9-12 Atrophy Pelvic Clock Other left lateral vaginal wall the tissue is still healing and Sydnee is guarded and tight on the left scar tissue tightness at the perineum does cause a lateral pull with perineum contraction , tightness of the transverse perineal on the left side Perineal Descent Resting Absent Bearing Absent Contraction Ability Voluntary Contraction Weak Voluntary Relaxation Weak Manual Muscle Testing Left 2 Manual Muscle Testing Right 2 Manual Muscle Testing Anterior 2 Manual Muscle Testing Posterior 2 Number of Quick Contractions In 10 5 Seconds PT-OP-Q Treatments Start: 10/01/23 10:36 Freq: Status: Active Protocol: Document 11/05/23 15:51 [facility] (Rec: 11/05/23 16:14 [facility] [id number]) Therapeutic Exercises Supine Exercises hip roll out Reps/Minutes 2 x 10 with level 3 band BALL SQUEEZE WITH PELVIC FLOOR CONTRACTION Reps/Minutes x 5 reps pelvic floor contract relax Reps/Minutes 6 average 8 max Comments left side SI discomfort Manual Therapy Treatment Soft Tissue Mobilization TRANSVERSE PERINEUM Mobilization Type Myofascial Release Comments Left side was not as tight today as compared to last visit worked on MFR for left side and over the perineum. Sydnee is better able to lift from the perineum Manual Techniques MET for left anterior innominant rotation Type MET Body Position Hooklying Reps/Duration 5 reps holding 5 seconds each PT-OP-R Modalities Start: 10/29/23 12:09 Freq: Status: Active Protocol: Document 11/05/23 15:15 [facility] (Rec: 11/05/23 16:19 [facility] [id number]) Ultrasound Therapy Treatment perineum and left transverse perineum Patient Position Supine Coupling Medium Ultrasound Gel Applicator Size (cm2) 2 Frequency Setting (mHz) 1 Duty Cycle 100% Intensity Setting (w/cm2) 1.2 Comments 5 minutes with small ultrasound head PT-OP-T Assessment and Plan Start: 10/01/23 10:36 Freq: Status: Active Protocol: Document 11/05/23 15:15 [facility] (Rec: 11/05/23 16:19 [facility] [id number]) Physical Therapy Assessment Goals 3 Impairment fecal and urinary incontinence Short Term Goal (STG) Sydnee is educated in bladder irritants and toileting strategies to improve bowel movements and voiding STG Duration 3 weeks Group Home Goal (LTG) Sydnee reports she is no longer experiencing fecal smearing/ incontinence and she is able to exercise without urinary leakage LTG Duration 12 weeks 2 Impairment decreased endurance of the pelvic floor Short Term Goal (STG) Sydnee is able to sustain a pelvic floor contraction x 10 seconds in supine STG Duration 5 weeks Replenishment Buyer Goal (LTG) Sydnee is able to sustain a pelvic floor contraction in standing x 5 seconds LTG Duration 12 weeks 1 Impairment post pelvic floor weakness Replenishment Buyer Goal (LTG) Sydnee is able to improve pelvic floor strength for all bustillo of the plevator ani to 3/5 MMT or better LTG Duration 12 weeks Assessment Summary Assessment Sydnee noted she felt decreased tension in the perineum after last visit so ultrasound and scar tissue mobilization was performed again today. She also noted she was feeling some low back discomfort. She was anteriorly rotated in the left SI joint so I did a MET to align her and she tolerated this well. She was given hip ER with theraband and ball squeeze to help stabilize her SI joint for home Physical Therapy Plan Frequency and Duration Frequency of Treatment 1x/Week Duration of treatment (weeks) 12 Plan of Care Start Date 10/01/23 Plan of Care End Date 12/24/23 Therapeutic Interventions Therapeutic Interventions Home Exercise Program,Manual Therapy,Neuromuscular Re- education,Patient/Caregiver Education,Self-Care/Home Management,Soft Tissue Mobilization,Therapeutic Exercises Modalities Biofeedback Next Visit Focus/Plan Next Note Type Treatment Note Next Visit Plan recheck SI alignment next visit and begin TA stabilization in quadruped
--- NOTE | 2023-11-11 09:55 | PT.OTN ---
Current Diagnoses Stress incontinence (female) (male) (11/11/23) Pelvic and perineal pain (11/11/23) Fecal smearing (11/11/23) Weakness (11/11/23) Physical Therapy Treatment Note PT-OP-A Visit Information Start: 10/01/23 10:36 Freq: Status: Active Protocol: Document 11/11/23 09:03 [facility] (Rec: 11/11/23 09:47 [facility] [id number]) Out-Patient Physical Therapy Visit Information Visit Information Visit Type Treatment Note Visit Start Time 09:03 Visit Stop Time 09:46 Visit Number 4 PT-OP-B Current Condition Start: 10/01/23 10:36 Freq: Status: Active Protocol: Document 10/01/23 10:30 [facility] (Rec: 10/01/23 10:54 [facility] [id number]) Current Condition History of Current Condition Onset Date 03/02/23 Current Complaints hx of rectocele, fecal incontinence, urinary incontinence, weakness History of Current Condition 3 vaginal deliveries with last delivery february 2023 she tore but reports she didn't get stiches. At her 6 week appt it was still open and it had to be cut to be sewn back together and then stitched. with her second delivery she had a rectocele and this was jul and then they moved a few months later. She feels like she has a little bowel leakage, most of the time she leaks with cough or sneeze. she just had her first period and it was really hard to put the tampon in. She suppliments to make sure she has a bowel movement. SHe feels the scar in her perineum is the right side. PT-OP-C Subjective Start: 10/01/23 10:36 Freq: Status: Active Protocol: Document 11/11/23 09:03 [facility] (Rec: 11/11/23 09:47 [facility] [id number]) OP-PT Subjective Patient Comments Patient Comments low back is still bothering her and she backed off on the long holds to see if that would help. Sydnee also reports she is taking mirilax to help with fully eliminating bowels PT-OP-I Pelvic Floor Start: 10/01/23 10:36 Freq: Status: Active Protocol: Document 10/01/23 10:30 [facility] (Rec: 10/07/23 12:40 [facility] [id number]) Pelvic Floor Assessment Urine Pelvic Floor Surgery No: childbirth 03/02/23 Other Urinary Symptoms some c/o fecal incontinence, urinary incontinence with strong cough and sneeze only, occasional pain with intercourse Leakage Size Large Leakage Cause Exercise Nocturia 0-2 Pelvic Clock Pelvic Clock 12-3 Atrophy Pelvic Clock 3-6 Guarding,Tenderness,Tightness Pelvic Clock 6-9 Atrophy Pelvic Clock 9-12 Atrophy Pelvic Clock Other left lateral vaginal wall the tissue is still healing and Sydnee is guarded and tight on the left scar tissue tightness at the perineum does cause a lateral pull with perineum contraction , tightness of the transverse perineal on the left side Perineal Descent Resting Absent Bearing Absent Contraction Ability Voluntary Contraction Weak Voluntary Relaxation Weak Manual Muscle Testing Left 2 Manual Muscle Testing Right 2 Manual Muscle Testing Anterior 2 Manual Muscle Testing Posterior 2 Number of Quick Contractions In 10 5 Seconds PT-OP-Q Treatments Start: 10/01/23 10:36 Freq: Status: Active Protocol: Document 11/11/23 09:03 [facility] (Rec: 11/11/23 09:47 [facility] [id number]) Therapeutic Exercises Supine Exercises foam roll stretch Reps/Minutes hold 1-2 min Comments abduction, ER, shoulder flexion, cues to posteriorly rotate spine BALL SQUEEZE WITH PELVIC FLOOR CONTRACTION Reps/Minutes x 10 reps Comments 10.8 and 20.4 max pelvic floor contract relax Reps/Minutes 8.4 and 21.7 Comments still feeling the SI discomfort Sidelying Exercises clam shells Reps/Minutes 2 x 10 Self-Care/Home Management Treatment Education Patient Education Home Exercise Program Other Education ILU self massage instruction PT-OP-R Modalities Start: 10/29/23 12:09 Freq: Status: Active Protocol: Document 11/05/23 15:15 [facility] (Rec: 11/05/23 16:19 [facility] [id number]) Ultrasound Therapy Treatment perineum and left transverse perineum Patient Position Supine Coupling Medium Ultrasound Gel Applicator Size (cm2) 2 Frequency Setting (mHz) 1 Duty Cycle 100% Intensity Setting (w/cm2) 1.2 Comments 5 minutes with small ultrasound head PT-OP-T Assessment and Plan Start: 10/01/23 10:36 Freq: Status: Active Protocol: Document 11/11/23 09:03 [facility] (Rec: 11/11/23 09:47 [facility] [id number]) Physical Therapy Assessment Goals 3 Impairment fecal and urinary incontinence Short Term Goal (STG) Sydnee is educated in bladder irritants and toileting strategies to improve bowel movements and voiding STG Duration 3 weeks Shelter Goal (LTG) Sydnee reports she is no longer experiencing fecal smearing/ incontinence and she is able to exercise without urinary leakage LTG Duration 12 weeks 2 Impairment decreased endurance of the pelvic floor Short Term Goal (STG) Sydnee is able to sustain a pelvic floor contraction x 10 seconds in supine STG Duration 5 weeks Shelter Goal (LTG) Sydnee is able to sustain a pelvic floor contraction in standing x 5 seconds LTG Duration 12 weeks 1 Impairment post pelvic floor weakness Shelter Goal (LTG) Sydnee is able to improve pelvic floor strength for all bustillo of the plevator ani to 3/5 MMT or better LTG Duration 12 weeks Assessment Summary Assessment worked on ILU self massage instruction today as well as adding in foam roll stretching for the low back. Sydnee tolerated this well. SHe woudl benefit from adding in rotational stretches and sidelying pilates next visit Physical Therapy Plan Frequency and Duration Frequency of Treatment 1x/Week Duration of treatment (weeks) 12 Plan of Care Start Date 10/01/23 Plan of Care End Date 12/24/23 Next Visit Focus/Plan Next Note Type Treatment Note Next Visit Plan work on sidelying pilates series next visit and mat pilates series
--- NOTE | 2023-12-10 16:35 | PT.OTN ---
Current Diagnoses Stress incontinence (female) (male) (12/10/23) Pelvic and perineal pain (12/10/23) Fecal smearing (12/10/23) Weakness (12/10/23) Physical Therapy Treatment Note PT-OP-A Visit Information Start: 10/01/23 10:36 Freq: Status: Active Protocol: Document 12/10/23 15:21 [facility] (Rec: 12/10/23 16:04 [facility] [id number]) Out-Patient Physical Therapy Visit Information Visit Information Visit Type Treatment Note Visit Start Time 15:15 Visit Stop Time 16:00 Visit Number 5 PT-OP-B Current Condition Start: 10/01/23 10:36 Freq: Status: Active Protocol: Document 10/01/23 10:30 [facility] (Rec: 10/01/23 10:54 [facility] [id number]) Current Condition History of Current Condition Onset Date 03/02/23 Current Complaints hx of rectocele, fecal incontinence, urinary incontinence, weakness History of Current Condition 3 vaginal deliveries with last delivery february 2023 she tore but reports she didn't get stiches. At her 6 week appt it was still open and it had to be cut to be sewn back together and then stitched. with her second delivery she had a rectocele and this was jul and then they moved a few months later. She feels like she has a little bowel leakage, most of the time she leaks with cough or sneeze. she just had her first period and it was really hard to put the tampon in. She suppliments to make sure she has a bowel movement. SHe feels the scar in her perineum is the right side. PT-OP-C Subjective Start: 10/01/23 10:36 Freq: Status: Active Protocol: Document 12/10/23 15:21 [facility] (Rec: 12/10/23 16:04 [facility] [id number]) OP-PT Subjective Patient Comments Patient Comments lately noticed she has had more urinary urgency, she is about to start her period still a issue with bowel movements and she has some urgency with that. pain has decreased , using the estrogen cream a few times a week, the tenderness has not been as much of a issue. Sydnee also notes she has been weaning off breast feeding so has been drinking increased coffee. Usually she isn't leaking but this weeks its been a few drops with the urgency Patient Reported Progress Improving PT-OP-I Pelvic Floor Start: 10/01/23 10:36 Freq: Status: Active Protocol: Document 10/01/23 10:30 [facility] (Rec: 10/07/23 12:40 [facility] [id number]) Pelvic Floor Assessment Urine Pelvic Floor Surgery No: childbirth 03/02/23 Other Urinary Symptoms some c/o fecal incontinence, urinary incontinence with strong cough and sneeze only, occasional pain with intercourse Leakage Size Large Leakage Cause Exercise Nocturia 0-2 Pelvic Clock Pelvic Clock 12-3 Atrophy Pelvic Clock 3-6 Guarding,Tenderness,Tightness Pelvic Clock 6-9 Atrophy Pelvic Clock 9-12 Atrophy Pelvic Clock Other left lateral vaginal wall the tissue is still healing and Sydnee is guarded and tight on the left scar tissue tightness at the perineum does cause a lateral pull with perineum contraction , tightness of the transverse perineal on the left side Perineal Descent Resting Absent Bearing Absent Contraction Ability Voluntary Contraction Weak Voluntary Relaxation Weak Manual Muscle Testing Left 2 Manual Muscle Testing Right 2 Manual Muscle Testing Anterior 2 Manual Muscle Testing Posterior 2 Number of Quick Contractions In 10 5 Seconds PT-OP-Q Treatments Start: 10/01/23 10:36 Freq: Status: Active Protocol: Document 12/10/23 15:21 [facility] (Rec: 12/10/23 16:04 [facility] [id number]) Therapeutic Exercises Supine Exercises quick contractions Reps/Minutes x 10 reps Comments 20 uv max BALL SQUEEZE WITH PELVIC FLOOR CONTRACTION Side bilateral Reps/Minutes x 12 reps holding 5 sec resting 10 seconds pelvic floor contract relax Reps/Minutes 8.8 and max of 15 Comments no SI joint pain Sidelying Exercises sidelying pilates series Side bilateral Reps/Minutes x 15 reps each clam shells Reps/Minutes x 15 reps Self-Care/Home Management Treatment Education Patient Education Home Exercise Program Other Education Sydnee was educated on the urge deference technique and bladder retraining PT-OP-R Modalities Start: 10/29/23 12:09 Freq: Status: Active Protocol: Document 11/05/23 15:15 [facility] (Rec: 11/05/23 16:19 [facility] [id number]) Ultrasound Therapy Treatment perineum and left transverse perineum Patient Position Supine Coupling Medium Ultrasound Gel Applicator Size (cm2) 2 Frequency Setting (mHz) 1 Duty Cycle 100% Intensity Setting (w/cm2) 1.2 Comments 5 minutes with small ultrasound head PT-OP-T Assessment and Plan Start: 10/01/23 10:36 Freq: Status: Active Protocol: Document 12/10/23 15:21 [facility] (Rec: 12/10/23 16:04 [facility] [id number]) Physical Therapy Assessment Goals 3 Impairment fecal and urinary incontinence Short Term Goal (STG) Sydnee is educated in bladder irritants and toileting strategies to improve bowel movements and voiding goal met STG Duration 3 weeks Mcfp Goal (LTG) Sydnee reports she is no longer experiencing fecal smearing/ incontinence and she is able to exercise without urinary leakage Sydnee is able to exercise without urinary leakage now but is still noting fecal smearing. LTG Duration 12 weeks 2 Impairment decreased endurance of the pelvic floor Short Term Goal (STG) Sydnee is able to sustain a pelvic floor contraction x 10 seconds in supine goal met STG Duration 5 weeks Transfer Agent Goal (LTG) Sydnee is able to sustain a pelvic floor contraction in standing x 5 seconds goal not yet met LTG Duration 12 weeks 1 Impairment post pelvic floor weakness Transfer Agent Goal (LTG) Sydnee is able to improve pelvic floor strength for all bustillo of the plevator ani to 3/5 MMT or better good progress LTG Duration 12 weeks Assessment Summary Assessment Sydnee is making good overall progress, she is not experiencing leaking with cough or sneeze at this time but does still note small amount of leakage with urgency . She is no longer experiencing pain with intercourse and core strengthening is improving. Sydnee would benefit from a few additional visits working into more upright postures for strengthening. Physical Therapy Plan Frequency and Duration Frequency of Treatment 1x/Week Duration of treatment (weeks) 12 Plan of Care Start Date 12/10/23 Plan of Care End Date 03/03/24 Therapeutic Interventions Therapeutic Interventions Home Exercise Program,Manual Therapy,Neuromuscular Re- education,Patient/Caregiver Education,Self-Care/Home Management,Soft Tissue Mobilization,Therapeutic Exercises Modalities Biofeedback Next Visit Focus/Plan Next Note Type Treatment Note Next Visit Plan review pilates sidelying series started today and continue with pelvic floor endurance training, review urge deffernce technique
--- NOTE | 2023-12-10 16:35 | PT.OPPOC ---
Physical, Occupational & Speech Therapy At [facility] Current Diagnoses Stress incontinence (female) (male) (12/10/23) Pelvic and perineal pain (12/10/23) Fecal smearing (12/10/23) Weakness (12/10/23) Visit Care Team Role Provider Type Avelina Corrales MD Family Provider Physician Primary Care Provider Specialty: Family Practice SUPERVISOR LENS GENERATING Address: [address] [place] [address], [facility] Fax: Email: [email or web address] Alysha Pereira CNM Attending Provider Advanced Glass Wool Blanket Machine Feeder Referring Provider Specialty: SUPERVISOR LENS GENERATING Address: [address] [place] [address], [address], [address] Email: [email or web address] Plan Of Care PT-OP-T Assessment and Plan Start: 10/01/23 10:36 Freq: Status: Active Protocol: Document 12/10/23 15:21 [facility] (Rec: 12/10/23 16:04 [facility] [id number]) Physical Therapy Assessment Goals 3 Impairment fecal and urinary incontinence Short Term Goal (STG) Sydnee is educated in bladder irritants and toileting strategies to improve bowel movements and voiding goal met STG Duration 3 weeks Manufacturing Engineering Technologist Goal (LTG) Sydnee reports she is no longer experiencing fecal smearing/ incontinence and she is able to exercise without urinary leakage Sydene is able to exercise without urinary leakage now but is still noting fecal smearing. LTG Duration 12 weeks 2 Impairment decreased endurance of the pelvic floor Short Term Goal (STG) Sydnee is able to sustain a pelvic floor contraction x 10 seconds in supine goal met STG Duration 5 weeks Manufacturing Engineering Technologist Goal (LTG) Sydnee is able to sustain a pelvic floor contraction in standing x 5 seconds goal not yet met LTG Duration 12 weeks 1 Impairment post pelvic floor weakness Shelter Goal (LTG) Sydnee is able to improve pelvic floor strength for all bustillo of the levator ani to 3/5 MMT or better good progress LTG Duration 12 weeks Assessment Summary Assessment Sydnee is making good overall progress, she is not experiencing leaking with cough or sneeze at this time but does still note small amount of leakage with urgency . She is no longer experiencing pain with intercourse and core strengthening is improving. Sydnee would benefit from a few additional visits working into more upright postures for strengthening. Physical Therapy Plan Frequency and Duration Frequency of Treatment 1x/Week Duration of treatment (weeks) 12 Plan of Care Start Date 12/10/23 Plan of Care End Date 03/03/24 Therapeutic Interventions Therapeutic Interventions Home Exercise Program,Manual Therapy,Neuromuscular Re- education,Patient/Caregiver Education,Self-Care/Home Management,Soft Tissue Mobilization,Therapeutic Exercises Modalities Biofeedback Next Visit Focus/Plan Next Note Type Treatment Note Next Visit Plan review pilates sidelying series started today and continue with pelvic floor endurance training, review urge deference technique Plan of Care Dates Plan of Care Start Date 12/10/23 Plan of Care End Date 03/03/24 Electronically Signed by: Debi Hope, PT 12/10/23 [id number] If you are in agreement with this Plan of Care, please return a signed and dated copy. I have reviewed this Plan of Care and certify that the skilled therapy services above are required to meet the patient?s needs. Physician Signature Date Printed Name and Credentials Clinical Instructor Signature Printed Name and Credentials
--- NOTE | 2024-01-21 16:51 | PT.OTN ---
Current Diagnoses Stress incontinence (female) (male) (01/20/24) Pelvic and perineal pain (01/20/24) Fecal smearing (01/20/24) Weakness (01/20/24) Physical Therapy Treatment Note PT-OP-A Visit Information Start: 10/01/23 10:36 Freq: Status: Active Protocol: Document 01/20/24 10:34 [facility] (Rec: 01/20/24 13:37 [facility] [id number]) Out-Patient Physical Therapy Visit Information Visit Information Visit Type Treatment Note Visit Start Time 10:35 Visit Stop Time 11:20 Visit Number 6 PT-OP-B Current Condition Start: 10/01/23 10:36 Freq: Status: Active Protocol: Document 10/01/23 10:30 [facility] (Rec: 10/01/23 10:54 [facility] [id number]) Current Condition History of Current Condition Onset Date 03/02/23 Current Complaints hx of rectocele, fecal incontinence, urinary incontinence, weakness History of Current Condition 3 vaginal deliveries with last delivery february 2023 she tore but reports she didn't get stiches. At her 6 week appt it was still open and it had to be cut to be sewn back together and then stitched. with her second delivery she had a rectocele and this was jul and then they moved a few months later. She feels like she has a little bowel leakage, most of the time she leaks with cough or sneeze. she just had her first period and it was really hard to put the tampon in. She suppliments to make sure she has a bowel movement. SHe feels the scar in her perineum is the right side. PT-OP-C Subjective Start: 10/01/23 10:36 Freq: Status: Active Protocol: Document 01/20/24 10:34 [facility] (Rec: 01/20/24 10:45 [facility] [id number]) OP-PT Subjective Patient Comments Patient Comments Sydnee notes she feels pretty strong She started running and that has felt really good. A couple 3 miles runs, no urinary leakage, no heaviness and pressure. She did wean her son from and its been 6 weeks . Sydnee does report she is still experiencing the fecal soiling at times and feels the ultrasound and scar tissue work did help with that Patient Reported Progress Improving PT-OP-I Pelvic Floor Start: 10/01/23 10:36 Freq: Status: Active Protocol: Document 10/01/23 10:30 [facility] (Rec: 10/07/23 12:40 [facility] [id number]) Pelvic Floor Assessment Urine Pelvic Floor Surgery No: childbirth 03/02/23 Other Urinary Symptoms some c/o fecal incontinence, urinary incontinence with strong cough and sneeze only, occasional pain with intercourse Leakage Size Large Leakage Cause Exercise Nocturia 0-2 Pelvic Clock Pelvic Clock 12-3 Atrophy Pelvic Clock 3-6 Guarding,Tenderness,Tightness Pelvic Clock 6-9 Atrophy Pelvic Clock 9-12 Atrophy Pelvic Clock Other left lateral vaginal wall the tissue is still healing and Sydnee is guarded and tight on the left scar tissue tightness at the perineum does cause a lateral pull with perineum contraction , tightness of the transverse perineal on the left side Perineal Descent Resting Absent Bearing Absent Contraction Ability Voluntary Contraction Weak Voluntary Relaxation Weak Manual Muscle Testing Left 2 Manual Muscle Testing Right 2 Manual Muscle Testing Anterior 2 Manual Muscle Testing Posterior 2 Number of Quick Contractions In 10 5 Seconds PT-OP-Q Treatments Start: 10/01/23 10:36 Freq: Status: Active Protocol: Document 01/20/24 10:34 [facility] (Rec: 01/20/24 11:02 [facility] [id number]) Therapeutic Exercises Supine Exercises pelvic floor contract relax Reps/Minutes 10.9 and max of 18.3 Comments no SI joint pain Manual Therapy Treatment Soft Tissue Mobilization TRANSVERSE PERINEUM Mobilization Type Myofascial Release Comments worked on scar tissue and worked on MFR for left side and over the perineum. Sydnee is better able to lift from the perineum but it is still pulling at a angle due to scar tissue Neuro Re-Education Treatment Other Activities nmes for the pelvic floor Reps/Duration 10 min Comments 10 min worked to level 11 to facilitate the posterior pelvic floor PT-OP-R Modalities Start: 10/29/23 12:09 Freq: Status: Active Protocol: Document 01/20/24 10:35 [facility] (Rec: 01/21/24 16:47 [facility] [id number]) Ultrasound Therapy Treatment perineum and left transverse perineum Patient Position Supine Coupling Medium Ultrasound Gel Applicator Size (cm2) 2 Frequency Setting (mHz) 1 Duty Cycle 100% Intensity Setting (w/cm2) 1.2 Comments 8 minutes with small ultrasound head PT-OP-T Assessment and Plan Start: 10/01/23 10:36 Freq: Status: Active Protocol: Document 01/21/24 16:48 [facility] (Rec: 01/21/24 16:51 [facility] [id number]) Physical Therapy Assessment Assessment Summary Assessment Sydnee continues to make good progress and she has been able to run 3 miles without urinary leakage. She is still noting some fecal smearing and so we tried NMES today to see it we could gain more posterior pelvic floor recruitment and I returned to US and scar tissue mobilization over the perineum . There is still some pulling of the perineum on the left side due to scar tissue Physical Therapy Plan Frequency and Duration Frequency of Treatment 1x/Week Duration of treatment (weeks) 12 Plan of Care Start Date 12/10/23 Plan of Care End Date 03/03/24 Therapeutic Interventions Therapeutic Interventions Home Exercise Program,Manual Therapy,Neuromuscular Re- education,Patient/Caregiver Education,Self-Care/Home Management,Soft Tissue Mobilization,Therapeutic Exercises Modalities Biofeedback Next Visit Focus/Plan Next Note Type Progress Note Next Visit Plan Reassess scar tissue again next visit and how Sydnee did with NMES
--- NOTE | 2024-10-04 11:11 | PT.OPDS ---
Current Diagnoses Stress incontinence (female) (male) (01/20/24) Pelvic and perineal pain (01/20/24) Fecal smearing (01/20/24) Weakness (01/20/24) Visit Care Team Role Provider Type Avelina Corrales MD Family Provider Physician Primary Care Provider Specialty: Family Practice PRIZE FIGHTER Address: [facility] [place], [address] Fax: Email: [email or web address] Alysha Pereira CNM Attending Provider Advanced Oil Well Cable Tool Operator Referring Provider Specialty: PRIZE FIGHTER Address: [address] [place] [address], [place] [address], [place], [address] Email: [email or web address] Visit Number Visit Number 6 Discharge Summary PT-OP-B Current Condition Start: 10/01/23 10:36 Freq: Status: Active Protocol: Document 10/01/23 10:30 [facility] (Rec: 10/01/23 10:54 [facility] [id number]) Current Condition History of Current Condition Onset Date 03/02/23 Current Complaints hx of rectocele, fecal incontinence, urinary incontinence, weakness History of Current Condition 3 vaginal deliveries with last delivery february 2023 she tore but reports she didn't get stiches. At her 6 week appt it was still open and it had to be cut to be sewn back together and then stitched. with her second delivery she had a rectocele and this was jul and then they moved a few months later. She feels like she has a little bowel leakage, most of the time she leaks with cough or sneeze. she just had her first period and it was really hard to put the tampon in. She suppliments to make sure she has a bowel movement. SHe feels the scar in her perineum is the right side. PT-OP-C Subjective Start: 10/01/23 10:36 Freq: Status: Active Protocol: Document 01/20/24 10:34 [facility] (Rec: 01/20/24 10:45 [facility] [id number]) OP-PT Subjective Patient Comments Patient Comments Sydnee notes she feels pretty strong She started running and that has felt really good. A couple 3 miles runs, no urinary leakage, no heaviness and pressure. She did wean her son from and its been 6 weeks . Sydnee does report she is still experiencing the fecal soiling at times and feels the ultrasound and scar tissue work did help with that Patient Reported Progress Improving PT-OP-I Pelvic Floor Start: 10/01/23 10:36 Freq: Status: Active Protocol: Document 10/01/23 10:30 [facility] (Rec: 10/07/23 12:40 [facility] [id number]) Pelvic Floor Assessment Urine Pelvic Floor Surgery No: childbirth 03/02/23 Other Urinary Symptoms some c/o fecal incontinence, urinary incontinence with strong cough and sneeze only, occasional pain with intercourse Leakage Size Large Leakage Cause Exercise Nocturia 0-2 Pelvic Clock Pelvic Clock 12-3 Atrophy Pelvic Clock 3-6 Guarding,Tenderness,Tightness Pelvic Clock 6-9 Atrophy Pelvic Clock 9-12 Atrophy Pelvic Clock Other left lateral vaginal wall the tissue is still healing and Sydnee is guarded and tight on the left scar tissue tightness at the perineum does cause a lateral pull with perineum contraction , tightness of the transverse perineal on the left side Perineal Descent Resting Absent Bearing Absent Contraction Ability Voluntary Contraction Weak Voluntary Relaxation Weak Manual Muscle Testing Left 2 Manual Muscle Testing Right 2 Manual Muscle Testing Anterior 2 Manual Muscle Testing Posterior 2 Number of Quick Contractions In 10 5 Seconds PT-OP-T Assessment and Plan Start: 10/01/23 10:36 Freq: Status: Active Protocol: Document 10/04/24 11:09 [facility] (Rec: 10/04/24 11:11 [facility] [id number]) Physical Therapy Assessment Assessment Summary Assessment At the time of her last visit Sydnee was making good progress and was able to run 3 miles without urinary leakage. She was still noting some fecal smearing and NMES was initiated with vaginal sensor. She also still presented with some residual scar tissue over the perineum. Sydnee has not been seen since 01/21/24. She will be DC at this time but I would be happy to resume PT for her at any point should she feel she needs additional care Physical Therapy Plan Discharge Physical Therapy Discharge Reasons No Longer Attending PT
== END 2024-10-06 10:58 | disposition home or self-care (01) ==
LOC: PHYS 10:30
PROVIDERS: Family Provider Family Medicine; PCP Family Medicine; Referring Provider Nurse Practitioner Obstetrics & Gynecology; Visit Provider Nurse Practitioner Obstetrics & Gynecology
DX: N39.3 Stress incontinence (female) (male) (principal); R53.1 Weakness; R10.2 Pelvic and perineal pain; R15.1 Fecal smearing
CPT/HCPCS: 97035; 97110; 97112; 97140; 97161; 97535

== ENCOUNTER → 2024-04-29 15:22 | Outpatient (CLI) | payer OTHER, SELFPAY ==
--- NOTE | 2024-04-29 15:24 | DI.RAD.S_ITS ---
PROCEDURE: XR HAND LT MIN 3V INDICATIONS: eval hand injury - 3rd and 4th finger TECHNIQUE: 3 views of the hand(s) acquired. COMPARISON: None. FINDINGS: Bones: There are no fracture or other osseous abnormalities Joints: The joint spaces are normal in width and alignment without arthritic change. Soft tissues: No soft tissue abnormality. IMPRESSION: Normal. Dictated by: Guy Calvert M.D. on 05/02/2024 at 9:40 Approved by: Guy Calvert M.D. on 05/02/2024 at 9:41
== END ==
PROVIDERS: Family Provider Family Medicine; PCP Family Medicine; Referring Provider Family Medicine; Visit Provider Family Medicine
DX: S69.90XA Unspecified injury of unspecified wrist, hand and finger(s), initial encounter (principal); X58.XXXA Exposure to other specified factors, initial encounter
CPT/HCPCS: 73130

== ENCOUNTER → 2025-01-04 07:59 | Outpatient (CLI) | payer OTHER, SELFPAY ==
[2025-01-04 09:02] LABS: Cholesterol 184 mg/dL (140-199); HDL Cholesterol 87 mg/dL (40-60); Triglycerides 44 mg/dL (35-150)
== END ==
PROVIDERS: Family Provider Family Medicine; PCP Family Medicine; Referring Provider Family Medicine; Visit Provider Family Medicine
DX: E78.5 Hyperlipidemia, unspecified (principal)
CPT/HCPCS: 36415; 80061

== ENCOUNTER → 2025-01-13 13:11 | Outpatient (CLI) | payer OTHER, SELFPAY ==
[2025-01-13 13:50] LABS: Add Manual Diff / Slide Review NO; Hematocrit 35.5 % (36-46); Hemoglobin 12.4 g/dL (12.0-16.0); Lymphocytes Absolute Auto 2200 /uL (1100-4500); Mean Corpuscular HGB Conc 35.1 % (30-36); Mean Corpuscular Hemoglobin 30.2 PG (26-34); Mean Corpuscular Volume 86.0 fL (80-100); Platelet Count 268 X10^3/uL (150-400)
[2025-01-13 14:23] LABS: HEMOLYSIS < 15 (0-50); Iron 73 ug/dL (37-170)
[2025-01-13 14:34] LABS: Percent Iron Saturation 23 % (15-50); Total Iron Binding Capacity 315 ug/dL (265-497); Transferrin 257 mg/dL (206-381)
[2025-01-13 14:46] LABS: Follicle Stimulating Hormone 4.43 mIU/mL
[2025-01-13 14:53] LABS: TSH w/ Reflex to FT4 0.66 uIU/mL (0.47-4.68)
[2025-01-13 14:59] LABS: Ferritin 11 ng/mL (6-137)
[2025-01-13 15:01] LABS: Estradiol, Total 54.1 pg/mL
== END ==
PROVIDERS: Family Provider Family Medicine; PCP Family Medicine; Referring Provider Family Medicine; Visit Provider Family Medicine
DX: R23.2 Flushing (principal); R45.86 Emotional lability; G47.00 Insomnia, unspecified
CPT/HCPCS: 36415; 82670; 82728; 83001; 83002; 83540; 83550; 84443; 85025

== ENCOUNTER → 2025-03-20 18:43 | Outpatient (CLI) | payer OTHER, SELFPAY ==
[2025-03-20 19:54] LABS: COVID-19 CEPHEID 4-PLEX PCR Negative (Negative); Influenza A - CEPHEID Flu A NEGATIVE (NEGATIVE); Influenza B - CEPHEID Flu B NEGATIVE (NEGATIVE)
== END ==
PROVIDERS: Family Provider Family Medicine; PCP Family Medicine; Visit Provider Chiropractor
DX: J02.9 Acute pharyngitis, unspecified (principal)
CPT/HCPCS: 87070; 87637